=== PATIENT | male | born 2000 | race Caucasian/White ===

== ENCOUNTER 2020-05-09 13:13 | Emergency (ER) | payer SELFPAY ==
[2020-05-09 13:20] VITALS: BP 132/80; PULSE 71; RESP 18; TEMP 36.2; O2SAT 98; BMI 20.3
--- NOTE | 2020-05-09 13:30 | ED_ITS ---
HPI - Chest Pain General: Chief Complaint: Chest Pain Stated Complaint: cp/sent over from [facility] Time Seen by Provider: 05/09/20 13:20 Source: patient Mode of arrival: ambulatory Limitations: no limitations History of Present Illness: HPI narrative: Patient was sent to the emergency department from his primary care provider's office because he complained of chest pain for 2 days duration but worse in the last few hours. No nausea, no vomiting, no dizziness, no diaphoresis. MD complaint: chest pain Onset (ago): hour(s) (24) Timing of current episode: constant Prior episodes: Yes Onset: during rest and during exertion Pain location: left chest Pain radiation: none Severity: moderate Quality: dull Relieving factors: nothing Exacerbating factors: nothing Associated symptoms: Reports no associated symptoms; Deny abdominal pain, dyspnea, fever(s), nausea, palpitations or vomiting Treatment prior to arrival: none Review of Systems General: Reports: 10 or more systems reviewed and unremarkable except in HPI and below Const: Denies: fever(s), chills or body aches Eyes: Denies: change in vision or blurry vision ENMT: Denies: throat pain, enlarged tonsils, odynophagia, hoarseness, mouth pain or swelling of lips/tongue Card: Reports: chest pain; Denies: palpitations, irregular heart rhythm, edema or swelling of feet/ankles Resp: Denies: dyspnea, productive cough or non-productive cough GI: Denies: abdominal pain, nausea or vomiting : Denies: flank pain, dysuria, urinary frequency, urinary urgency or urinary hesitancy Musc: Denies: neck pain, back pain or extremity swelling Skin/Breast: Denies: rash, pruritus or erythema Neuro: Denies: headache(s), numbness in extremities or weakness in extremities Endo: Denies: polyuria, polydipsia or tired all the time PFS ED PFSH: Medical History Right bundle branch block Social History Smoking and tobacco status: heavy tobacco smoker Quit status (tobacco): not considering quitting Second hand smoke exposure: Yes Smoking risk assessment/counseling performed?: No Alcohol intake: never Desire information about alcohol rehabilitation?: No Counseling given: No Desire information about substance/drug rehabilitation?: No Counseling given: No Adopted: No Caregiver/support person: Yes Lives independently: Yes Physical Exam Const: COMMON NORMALS: no acute distress, average body habitus, patient oriented x3, no limitations, healthy appearing, alert and well nourished HENMT: COMMON NORMALS: normocephalic, atraumatic and moist oral mucous membranes HEAD & SCALP: normocephalic and atraumatic Neck/C-Spine: COMMON NORMALS: no meningeal signs and no JVD Chest: COMMONS NORMALS: normal inspection of the chest CHEST: Yes tenderness Resp: COMMON NORMALS: normal respiratory effort, No retractions, No use of accessory muscles, clear to auscultation bilaterally and percussion normal AUSCULTATION: clear to auscultation bilaterally PERCUSSION: percussion normal Cardio: COMMON NORMALS: no JVD, regular rate, regular rhythm, S1 normal heart sound present, S2 normal heart sound present, No gallops present (Cardio), No clicks present (Cardio), No murmurs present (Cardio), No rub (Cardio) and Peripheral pulses 2+ throughout RATE: regular rate RHYTHM: regular rhythm HEART SOUNDS: S1 normal heart sound present and S2 normal heart sound present PERIPHERAL PULSES: Peripheral pulses 2+ throughout GI: COMMON NORMALS: Normal to inspection, nondistended, normoactive bowel sounds present, Soft to palpation, non-tender, No hepatosplenomegaly present, no masses and no bruits PALPATION: Yes Soft to palpation and Yes No hepatosplenomegaly present Extremity: COMMON NORMALS: normal to inspection, full ROM, capillary refill normal, no calf tenderness and no pedal edema Neuro: COMMON NORMALS: patient oriented x3 SENSORIUM/ORIENTATION: Yes alert MENINGEAL SIGNS: Yes no meningeal signs Course Reevaluation(s): Reevaluation #1: Discussed his lab and imaging findings with him. He has mild rhabdomyolysis otherwise labs are unremarkable. Negative baseline troponin and flat 2-hour delta. Advised him to drink plenty of water to keep well-hydrated and to follow-up with his primary care provider. He voiced understanding and is in agreement with the plan. Time: 17:00 Vital Signs: Vital signs: Vital Signs Temperature 97.1 F L 05/09/20 13:20 Pulse Rate 65 05/09/20 17:18 Respiratory Rate 19 H 05/09/20 17:18 Blood Pressure 136/91 05/09/20 17:18 Pulse Oximetry 98 05/09/20 17:18 MDM - Chest Pain MDM Narrative: Medical decision making narrative: 20-year-old gentleman who presented to the emergency department with chest pain. Evaluation was negative for acute coronary findings. Heart score was 0. 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 He is discharged home with no new orders other than to increase his water intake. Medical Records: Attestation: I reviewed the patient's medical records. Lab Data: Attestation: I reviewed the patient's lab results. Labs: Lab Results 05/09/20 05/09/20 05/09/20 Range/Units 13:40 13:40 13:40 WBC 6.1 (4.5-13.0) 10^3/ uL RBC 5.09 (4.1-5.3) 10^6/u L Hgb 14.8 (11.7-16.6) g/dL Hct 43.9 (42.0-52.0) % MCV 86.2 (80-94) fL MCH 29.1 (28.0-34.0) pg MCHC 33.7 (30.0-36.0) g/dL RDW 12.5 (12.1-15.1) % Plt Count 268 (130-400) 10^3/c mm MPV 11.9 H (7.4-10.4) fL Neut % (Auto) 52.3 % Lymph % (Auto) 37.6 % [place] % (Auto) 6.8 % Eos % (Auto) 1.8 % Baso % (Auto) 1.2 % Neut # (Auto) 3.18 (1.8-8.0) 10^3/u L Lymph # (Auto) 2.3 (1.5-6.5) 10^3/u L [place] # (Auto) 0.4 (0.2-0.9) 10^3/u L Eos # (Auto) 0.1 (0.0-0.8) 10^3/u L Baso # (Auto) 0.1 (0.0-0.1) 10^3/u L Nucleated RBC % (a uto) 0 % Nucleated RBCs # 0.0 /100WBC Sodium 137 (136-145) mmol/L Potassium 4.4 (3.5-5.1) mmol/L Chloride 103 (98-107) mmol/L Carbon Dioxide 27 (22-29) mmol/L Anion Gap 11.4 (5-19) BUN 9 (6-20) mg/dL Creatinine 1.1 (0.7-1.2) mg/dL GFR Calculation 85.3 L (90-130) mL/min Glucose 86 (65-115) mg/dL Calculated Osmolal ity 279 L (285-295) mOsm/k g Calcium 9.9 (8.5-10.5) mg/dL Total Bilirubin 0.5 (0.15-1.2) mg/dL AST 27 (0-40) U/L ALT 17 (0-41) U/L Alkaline Phosphata se 73 (40-130) IU/L Creatine Kinase 342 H* (39-308) U/L Troponin T Baselin e 6 (0-15) ng/L Troponin T 120 Min aundrea (0-15) ng/L Delta Troponin T (0-10) ABS# NT-Pro-B Natriuret Pep 19 (0-125) pg/mL Total Protein 6.7 (6.6-8.7) g/dL Albumin 4.9 (3.5-5.2) g/dL Globulin 1.8 (1.3-4.6) g/dL Lipase 19 (13-60) U/L 05/09/20 Range/Units 15:50 WBC (4.5-13.0) 10^3/ uL RBC (4.1-5.3) 10^6/u L Hgb (11.7-16.6) g/dL Hct (42.0-52.0) % MCV (80-94) fL MCH (28.0-34.0) pg MCHC (30.0-36.0) g/dL RDW (12.1-15.1) % Plt Count (130-400) 10^3/c mm MPV (7.4-10.4) fL Neut % (Auto) % Lymph % (Auto) % [place] % (Auto) % Eos % (Auto) % Baso % (Auto) % Neut # (Auto) (1.8-8.0) 10^3/u L Lymph # (Auto) (1.5-6.5) 10^3/u L [place] # (Auto) (0.2-0.9) 10^3/u L Eos # (Auto) (0.0-0.8) 10^3/u L Baso # (Auto) (0.0-0.1) 10^3/u L Nucleated RBC % (a uto) % Nucleated RBCs # /100WBC Sodium (136-145) mmol/L Potassium (3.5-5.1) mmol/L Chloride (98-107) mmol/L Carbon Dioxide (22-29) mmol/L Anion Gap (5-19) BUN (6-20) mg/dL Creatinine (0.7-1.2) mg/dL GFR Calculation (90-130) mL/min Glucose (65-115) mg/dL Calculated Osmolal ity (285-295) mOsm/k g Calcium (8.5-10.5) mg/dL Total Bilirubin (0.15-1.2) mg/dL AST (0-40) U/L ALT (0-41) U/L Alkaline Phosphata se (40-130) IU/L Creatine Kinase (39-308) U/L Troponin T Baselin e (0-15) ng/L Troponin T 120 Min aundrea 6.00 (0-15) ng/L Delta Troponin T 0 (0-10) ABS# NT-Pro-B Natriuret Pep (0-125) pg/mL Total Protein (6.6-8.7) g/dL Albumin (3.5-5.2) g/dL Globulin (1.3-4.6) g/dL Lipase (13-60) U/L Imaging Data^: CXR: Radiologist's impression: [address] [address] XRay Report Signed Patient: Cristobal OrtegaTien #: [id number] : 2000Acct#:[id number] Age/Sex: 20 / MADM Date: 05/09/20 Loc: ERRoom/Bed: Attending Dr: Ordering Provider/Ordering MD: Alcides Mackenzie MD, [facility] [place]: 05/09/20 Procedure(s): XR chest 1V portable [id number] Accession Number(s): [id number] Report Number: [id number] WS: [id number] CHEST XRAY TECHNIQUE: Portable chest. CLINICAL INFORMATION: chest pain COMPARISON: FINDINGS: Heart: Normal cardiac silhouette. Lungs: Lungs are clear. No consolidation or pleural effusion. Bones: Normal visualized bony structures. XR/XR chest 1V portable [id number] IMPRESSION: Normal chest Dictated By:Boyd Swenson MD Signed By:Boyd Swenson MDSigned Date/Time:05/09/201356 DD/ 135 EKG Data^: EKG 1: Attestation: I personally reviewed and interpreted this EKG as follows: EKG interpretation date: 05/09/20 EKG interpretation time: 14:02 Prior EKG tracings: not available for review Interpretation: Sinus rhythm with sinus arrhythmia. 71 beats per minutes. Incomplete right bundle branch block. No ST changes EKG 2: Attestation: I personally reviewed and interpreted this EKG as follows: EKG interpretation date: 05/09/20 EKG interpretation time: 16:17 Prior EKG tracings: available for review Interpretation: Sinus bradycardia with sinus arrhythmia. Heart rate [address] changes. Normal axis. Discharge Plan Discharge Patient Disposition: Home Clinical Impression: Chest pain, non-cardiac Rhabdomyolysis Qualifiers: Rhabdomyolysis type: non-traumatic Qualified Code(s): M62.82 - Rhabdomyolysis Condition: Stable Prescriptions: No Action No Known Home Medications RF: 0 Discharge Orders: Discharge Order (Routine); Ordered 05/09/20 Ordered By: Alcides Mackenzie Referrals: Kelin Ortez FNP-C [Primary Care Provider] - 1-3 days Discharge Diet: Usual diet Discharge Activity: Resume usual activity Patient Instructions: Rhabdomyolysis (ED), Noncardiac Chest Pain (ED) Activity Restrictions/Additional Instructions: Return for any new or worsening symptoms. Follow-up with your primary care provider within 2 days. Drink plenty of water to keep well-hydrated. Rest for the next 1 or 2 days then gradually resume your prior level of activity. Discharge Date/Time: 05/09/20 17:21 Coding Level of Care Code ED Planer Hand for Jamari Fwleodan Exam Comprehensive
--- NOTE | 2020-05-09 13:32 | ECG_ITS ---
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 Measurements Intervals [place] Rate: 71 P: 70 W[place]: 161 QRS: -17 QRSD: 100 T: 54 QT: 395 QTc: 432 Interpretive Statements SINUS RHYTHM WITH SINUS ARRHYTHMIA INCOMPLETE RIGHT BUNDLE BRANCH BLOCK [90+ ms QRS DURATION, TERMINAL R IN V1/V2, 40+ ms S IN I/aVL/V4/V5/V6] No previous ECG available for comparison Electronically Signed On 05-09-2020 20:15:45 CDT by Chantal Chaudhary M.D. [id number]
--- NOTE | 2020-05-09 13:32 | XR_ITS ---
WS: [id number] CHEST XRAY TECHNIQUE: Portable chest. CLINICAL INFORMATION: chest pain COMPARISON: FINDINGS: Heart: Normal cardiac silhouette. Lungs: Lungs are clear. No consolidation or pleural effusion. Bones: Normal visualized bony structures. XR/XR chest 1V portable [id number] IMPRESSION: Normal chest
[2020-05-09 13:46] VITALS: BP 123/74; PULSE 74; RESP 19; O2SAT 99
[2020-05-09] MEDS: aspirin 81 mg Chew Tablet 324 MG PO (13:47)
[2020-05-09 13:49] LABS: Basophils # 0.1 10^3/uL (0.0-0.1); Basophils % 1.2 %; Eosinophils # 0.1 10^3/uL (0.0-0.8); Eosinophils % 1.8 %; Hematocrit 43.9 % (42.0-52.0); Hemoglobin 14.8 g/dL (11.7-16.6); Lymphocytes # 2.3 10^3/uL (1.5-6.5); Lymphocytes % 37.6 %; Mean Corpuscular HGB Conc 33.7 g/dL (30.0-36.0); Mean Corpuscular Hemoglobin 29.1 pg (28.0-34.0); Mean Corpuscular Volume 86.2 fL (80-94); Mean Platelet Volume 11.9 fL (7.4-10.4); Monocytes # 0.4 10^3/uL (0.2-0.9); Monocytes % 6.8 %; Neutrophils # 3.18 10^3/uL (1.8-8.0); Neutrophils % 52.3 %; Nucleated Red Blood Cells % 0 %; Platelet Count 268 10^3/cmm (130-400); Red Blood Count 5.09 10^6/uL (4.1-5.3); Red Cell Distribution Width 12.5 % (12.1-15.1); White Blood Count 6.1 10^3/uL (4.5-13.0)
[2020-05-09 14:00] VITALS: BP 117/73; PULSE 58; RESP 16; O2SAT 100
[2020-05-09 14:17] LABS: Troponin(5th) Baseline 6 ng/L (0-15)
--- NOTE | 2020-05-09 14:20 | PC.NURSE ---
PT STATES THAT HE CANNOT URINATE INFORMED DR. SANTAMARIA VERBALIZED UNDERSTANDING NO FURTHER ORDERS.
[2020-05-09 14:21] LABS: Alanine Aminotransferase 17 U/L (0-41); Albumin Level 4.9 g/dL (3.5-5.2); Alkaline Phosphatase 73 IU/L (40-130); Anion Gap 11.4 (5-19); Aspartate Amino Transferase 27 U/L (0-40); Blood Urea Nitrogen 9 mg/dL (6-20); Calcium 9.9 mg/dL (8.5-10.5); Carbon Dioxide 27 mmol/L (22-29); Chloride 103 mmol/L (98-107); Globulin 1.8 g/dL (1.3-4.6); Glomerular Filtration Rate 85.3 mL/min (90-130); Glucose 86 mg/dL (65-115); Lipase 19 U/L (13-60); NT Pro B Type Natriuretic Pept 19 pg/mL (0-125); Osmolality Calculated 279 mOsm/kg (285-295); Potassium 4.4 mmol/L (3.5-5.1); Sodium 137 mmol/L (136-145); Total Bilirubin 0.5 mg/dL (0.15-1.2); Total Protein 6.7 g/dL (6.6-8.7)
[2020-05-09 14:26] LABS: Creatine Phosphokinase 342 U/L (39-308)
[2020-05-09] MEDS: sodium chloride 0.9% 1,000 ML 999 ML IV ×2 (14:41→15:26)
--- NOTE | 2020-05-09 15:15 | PC.NURSE ---
PT STATES THAT HE CANNOT URINATE FOR LAB SPECIMEN INFORMED DR. SANTAMARIA NO FURTHER ORDERS
[2020-05-09 15:29] VITALS: BP 122/72; PULSE 54; RESP 21; O2SAT 100
--- NOTE | 2020-05-09 15:32 | ECG_ITS ---
[facility] Test Date: 2020-05-09 Pat Name: Tien Jain Jr Department: Room: Gender: Male Dynamometer Tester: : 2000 Requested By: Alcides Mackenzie I Order Number: [id number] Tyree MD: Chantal Chaudhary M.D. Measurements Intervals [place] Rate: 56 P: 69 RI: 170 QRS: 6 QRSD: 101 T: 57 QT: 415 QTc: 401 Interpretive Statements SINUS BRADYCARDIA WITH SINUS ARRHYTHMIA Compared to ECG 05/09/2020 14:02:36 Sinus rhythm no longer present Incomplete right bundle-branch block no longer present Electronically Signed On 05-09-2020 20:32:08 CDT by Chantal Chaudhary M.D. [id number]
[2020-05-09 16:28] LABS: Troponin 5 2HR Delta 0 ABS# (0-10)
[2020-05-09 16:30] VITALS: BP 123/78; PULSE 74; RESP 15; O2SAT 100
[2020-05-09 17:18] VITALS: BP 136/91; PULSE 65; RESP 19; O2SAT 98
== END 2020-05-09 17:21 | disposition home or self-care (01) ==
PROVIDERS: Emergency Provider Family Medicine; PCP Nurse Practitioner Family
DX: R07.89 Other chest pain (principal); M62.82 Rhabdomyolysis; F17.210 Nicotine dependence, cigarettes, uncomplicated
CPT/HCPCS: 12345; 36415; 71045; 80053; 82550; 83690; 83880; 84484; 85025; 93005; 96360; 96361; 99283; 99284; J7030

== ENCOUNTER 2020-07-09 13:48 | Outpatient (CLI) | payer SELFPAY | END 2020-07-09 13:49 | disposition home or self-care (01) | LOC: WOUND 13:48 | PROVIDERS: PCP Nurse Practitioner Family; Visit Provider Thoracic Surgery (Cardiothoracic Vascular Surgery) | DX: L89.323 Pressure ulcer of left buttock, stage 3 (principal) ==

== ENCOUNTER 2021-04-17 12:58 | Emergency (ER) | payer SELFPAY ==
[2021-04-17 13:02] VITALS: BP 120/70; PULSE 67; RESP 18; TEMP 36.7; O2SAT 100; BMI 21.4
--- NOTE | 2021-04-17 13:36 | XR_ITS ---
WS: [id number] Left hand, 3 views, 04/17/2021 Clinical Data: work injury, hand swelling Comparison: None. Findings: There is a nondisplaced fracture of the base of the left second metacarpal. The remainder the metacar pals is normal. The joint spaces are normal. There is soft tissue swelling over the fracture site. XR/XR hand LT min 3V* [id number] Impression: Fracture of the base of the left second metacarpal.
--- NOTE | 2021-04-17 13:36 | XR_ITS ---
WS: [id number] Left wrist, 3 views, 04/17/2021 Clinical Data: work injury Comparison: None. Findings: There is a fracture of the base of the right second metacarpal. No wrist fractures or dislocations are seen. The carpal bones are intact. There is no soft tissue swe lling. The distal radius and ulna are not remarkable. XR/XR wrist LT min 3V* [id number] Impression: Fracture of the base of the right second metacarpal.
[2021-04-17 13:37] VITALS: BP 120/70; PULSE 56; RESP 16; O2SAT 100
--- NOTE | 2021-04-17 14:53 | W.ED.TRAUMA ---
HPI - Trauma General: Chief Complaint: Trauma Stated Complaint: L RIB/ L HAND/ L WRIST/ TRAUMA Time Seen by Provider: 04/17/21 13:13 Source: patient Mode of arrival: EMS Limitations: no limitations History of Present Illness: HPI narrative: Patient is a 20-year-old male who was brought into the emergency department from work after sustaining a work-related injury. He says a piece of log rolled off from what it was and landed on his left wrist and hand. He has pain and swelling in the left hand. He denies any other injuries and he has pain nowhere else. complaint: injury Onset (ago): hour(s) (1) Loss of Consciousness: no Location - Extremities: Left: hand Severity: severe Context: other (log fell on his hand) Associated symptoms: Reports no associated symptoms; Denies abdominal pain, anorexia, back pain, chest pain, chills, confusion, cough, dental pain, diaphoresis, difficulty breathing, dizziness, epistaxis, fever(s), headache(s), nausea, seizures, short of breath, syncope, visual disturbances, vomiting or weakness Review of Systems General: Reports: 10 or more systems reviewed and unremarkable except in HPI and below Const: Denies: fever(s), chills or diaphoresis ENMT: Denies: dental pain or epistaxis Card: Denies: chest pain or syncope GI: Denies: abdominal pain, nausea or vomiting Musc: Denies: back pain Neuro: Denies: headache(s), dizziness or confusion PFS ED PFSH: Medical History (Reviewed 04/18/21 @ 12:09 by Alcides Mackenzie MD, [facility] [place] Right bundle branch block Social History (Reviewed 04/18/21 @ 12:09 by Alcides Mackenzie MD, [facility] [place]) Smoking and tobacco status: heavy tobacco smoker Quit status (tobacco): not considering quitting Second hand smoke exposure: Yes Smoking risk assessment/counseling performed?: No Alcohol intake: never Desire information about alcohol rehabilitation?: No Counseling given: No Desire information about substance/drug rehabilitation?: No Counseling given: No Adopted: No Caregiver/support person: Yes Lives independently: Yes Physical Exam Const: COMMON NORMALS: no acute distress, average body habitus, patient oriented x3, no limitations, healthy appearing, alert and well nourished HENMT: COMMON NORMALS: normocephalic, atraumatic and moist oral mucous membranes HEAD & SCALP: normocephalic and atraumatic Eye: COMMON NORMALS: Equal, round and reactive pupils present, EOMs intact bilaterally, conjunctivae normal and no scleral icterus CONJUNCTIVA: Yes conjunctivae normal PUPIL: Yes Equal, round and reactive pupils present Neck/C-Spine: COMMON NORMALS: full ROM, supple, no meningeal signs, no JVD and No carotid bruits Resp: COMMON NORMALS: normal respiratory effort, No retractions, No use of accessory muscles, clear to auscultation bilaterally and percussion normal AUSCULTATION: clear to auscultation bilaterally PERCUSSION: percussion normal Cardio: COMMON NORMALS: no JVD, regular rate, regular rhythm, S1 normal heart sound present, S2 normal heart sound present, No gallops present (Cardio), No clicks present (Cardio), No murmurs present (Cardio), No rub (Cardio) and Peripheral pulses 2+ throughout RATE: regular rate RHYTHM: regular rhythm HEART SOUNDS: S1 normal heart sound present and S2 normal heart sound present PERIPHERAL PULSES: Peripheral pulses 2+ throughout GI: COMMON NORMALS: Normal to inspection, nondistended, normoactive bowel sounds present, Soft to palpation, non-tender, No hepatosplenomegaly present, no masses and no bruits PALPATION: Yes Soft to palpation and Yes No hepatosplenomegaly present Extremity: COMMON NORMALS: normal to inspection, full ROM, capillary refill normal, no calf tenderness and no pedal edema LEFT UPPER EXTREMITY: Yes hand & digits (swelling at the dorsal web space between thumb and index finger) Left hand and digits: Yes palpation (Tender to palpation around the base of the first and second metacarpal), Yes ROM (reduced, due to pain) and Yes neurovascular exam (intact) Neuro: COMMON NORMALS: patient oriented x3 SENSORIUM/ORIENTATION: Yes alert MENINGEAL SIGNS: Yes no meningeal signs Skin: COMMON NORMALS: no rashes or lesions noted, no wounds, turgor normal, no jaundice, no petechiae and no mottling GENERAL SKIN EXAM: no rashes or lesions noted and turgor normal TRAUMA: abrasion (abrasions on his shoulder and right forearm but he says that these are old) Course Reevaluation(s): Reevaluation #1: Discussed his imaging findings with him. Explained that he has a fracture of the second metacarpal as reported by the radiologist. On looking at the images I think he also has a fracture of the base of the first metacarpal. He will be referred to orthopedic surgery for follow-up on his placed in a Colles' splint. Time: 14:54 Vital Signs: Vital signs: Vital Signs Temperature 98.0 F 04/17/21 13:02 Pulse Rate 68 04/17/21 16:00 Respiratory Rate 16 04/17/21 16:00 Blood Pressure 131/85 04/17/21 16:00 Pulse Oximetry 100 04/17/21 16:00 MDM - Trauma MDM Narrative: Medical decision making narrative: 20-year-old male who suffered fracture of the base of his first and second metacarpals of his left hand following a workplace accident. A piece of log fell on his hand while at work. He was placed in a: Splint and discharged home with a prescription for pain medication. He is to follow-up with his primary care provider and an orthopedic surgeon. Medical Records: Attestation: I reviewed the patient's medical records. Imaging Data^: Xray Ortho: Attestation: I personally reviewed and interpreted this imaging study as follows: Radiologist's impression: [address] [address]ZSdj ReportSigned Patient: Tien Jain Jr #: [id number]: 2000Acct#:[id number]/Sex: 20 / MADM Date: 04/17/21Loc: [facility]/Bed:Attending Dr: Ordering Provider/Ordering MD: Alcides Mackenzie MD, [facility] [place] Date of Service: 04/17/21 Procedure(s): XR hand LT min 3V* [id number] Accession Number(s): [id number] Report Number: [id number] WS: [id number] Left hand, 3 views, 04/17/2021 Clinical Data: work injury, hand swelling Comparison: None. Findings: There is a nondisplaced fracture of the base of the left second metacarpal. The remainder the metacarpals is normal. The joint spaces are normal. There is soft tissue swelling over the fracture site. XR/XR hand LT min 3V* [id number] Impression: Fracture of the base of the left second metacarpal. Dictated By:Addis Perales MDSigned By:Addis Perales MDSigned Date/Time:04/17/21/ [address] [address]FAzk ReportSigned Patient: Tien Jain Jr #: [id number]: 2000Acct#:[id number]/Sex: 20 / MADM Date: 04/17/21Loc: ERRoom/Bed:Attending Dr: Ordering Provider/Ordering MD: Alcides Mackenzie MD, [facility] [place] Date of Service: 04/17/21 Procedure(s): XR wrist LT min 3V* 46061 Accession Number(s): [id number] Report Number: [id number] WS: [id number] Left wrist, 3 views, 04/17/2021 Clinical Data: work injury Comparison: None. Findings: There is a fracture of the base of the right second metacarpal. No wrist fractures or dislocations are seen. The carpal bones are intact. There is no soft tissue swelling. The distal radius and ulna are not remarkable. XR/XR wrist LT min 3V* [id number] Impression: Fracture of the base of the right second metacarpal. Dictated By:Addis Perales MDSigned By:Addis Perales MDSigned Date/Time:04/17/21/ 26 Discharge Plan Discharge Patient Disposition: Home Clinical Impression: Fx metacarpal Qualifiers: Encounter type: initial encounter Metacarpal bone: second Fracture type: closed Metacarpal location: base Fracture alignment: nondisplaced Laterality: left Qualified Code(s): S62.341A - Nondisplaced fracture of base of second metacarpal bone, left hand, initial encounter for closed fracture First metacarpal bone fracture Qualifiers: Encounter type: initial encounter Fracture type: closed Metacarpal location: base Fracture morphology: unspecified fracture morphology Fracture alignment: nondisplaced Laterality: left Qualified Code(s): S62.235A - Other nondisplaced fracture of base of first metacarpal bone, left hand, initial encounter for closed fracture Condition: Stable Prescriptions: New hydrocodone-acetaminophen 5-325 mg tablet 1 tab PO Q8H PRN (Reason: metacarpal fracture) Qty: 10 RF: 0 No Action No Known Home Medications RF: 0 Discharge Orders: Discharge ED (Routine); Ordered 04/17/21 Ordered By: Alcides Mackenzie Referrals: Kelin Ortez FNP-C [Primary Care Provider] - 1-3 days Discharge Diet: Usual diet Discharge Activity: Limit activity as instructed Patient Instructions: Hand Fracture (ED), Opioid Safety Activity Restrictions/Additional Instructions: Return for any new or worsening symptoms. Follow-up with your primary care provider/Workmen's Comp. doctor within 3 days. You will be contacted by case management to schedule an appointment with orthopedic surgeon. Use the splint to help reduce swelling and pain. Elevate the arm and hand to reduce swelling and pain. Take the pain medicine as needed for severe pain. Take ibuprofen for mild to moderate pain. No heavy lifting until you have been cleared by your doctor. Stand Alone Forms: Work/School Release Coding Level of Care Code ED Shadow Graph Weight Operator for Jamari Lemon
[2021-04-17 16:00] VITALS: BP 131/85; PULSE 68; RESP 16; O2SAT 100
--- NOTE | 2021-04-17 16:26 | PC.NURSE ---
left arm splint applied. Checked by Dr. Mackenzie.
--- NOTE | 2021-04-18 08:50 | DCPLANNER ---
manager stars had message to schedule a follow up appointment for patient with ortho for metacarpal fracture. manager stars called the ortho clinic, spoke with Breanne, gave clinic patients information. manager stars was told that patients information would be printed and reviewed. Clinic will call patient with appointment information.
--- NOTE | 2021-04-22 08:12 | DCPLANNER ---
Patient has a follow up appointment scheduled for , April 24, 2021 at 3:[address] De Leon at [facility]. Clinic will call patient with appointment information.
--- NOTE | 2021-05-16 13:30 | DCPLANNER ---
Patient had a follow up appointment scheduled for 04.24.21 with ortho - appointment was rescheduled.
== END 2021-04-17 16:48 | disposition home or self-care (01) ==
PROVIDERS: Emergency Provider Family Medicine; PCP Nurse Practitioner Family
DX: S62.341A Nondisplaced fracture of base of second metacarpal bone, left hand, initial encounter for closed fracture (principal); S62.235A Other nondisplaced fracture of base of first metacarpal bone, left hand, initial encounter for closed fracture; F17.200 Nicotine dependence, unspecified, uncomplicated; W20.8XXA Other cause of strike by thrown, projected or falling object, initial encounter; Y92.89 Other specified places as the place of occurrence of the external cause
CPT/HCPCS: 29125; 73110; 73130; 99283

== ENCOUNTER 2023-01-02 16:54 | Inpatient (IN) | payer BC, SELFPAY ==
[2023-01-02 16:55] VITALS: BP 123/67; PULSE 89; RESP 15; TEMP 36.9; O2SAT 96; BMI 20.7
--- NOTE | 2023-01-02 17:00 | ED.C_ITS ---
HPI - Psych General: Chief Complaint: Psychiatric Symptoms Stated Complaint: SI Time Seen by Provider: 01/02/23 16:58 History of Present Illness: Patient brought in by EMS with complaints of suicidal ideation and attempt. Patient has multiple superficial abrasions to his left forearm and a laceration to his left neck. These was diirect and attempt to end his life. MD complaint: suicidal ideation Onset (ago): day(s) Duration: constant Relieving factors: none Exacerbating factors: none Context: recent alcohol abuse Associated psychiatric symptoms: depression and suicidal ideation Associated symptoms: Reports depression and suicidal ideation Treatments prior to arrival: none If self harm: admits thoughts of self harm and has plan Review of Systems General: Reports: 10 or more systems reviewed and unremarkable except in HPI and below Const: Denies: fever(s) or chills Eyes: Denies: change in vision or photophobia ENMT: Denies: throat pain or odynophagia Card: Denies: chest pain, palpitations or irregular heart rhythm Resp: Denies: dyspnea, productive cough or non-productive cough GI: Denies: abdominal pain, nausea or vomiting : Denies: flank pain or dysuria Musc: Denies: neck pain, back pain or extremity pain Skin/Breast: Denies: rash or pruritus Neuro: Denies: headache(s) or numbness in extremities Psych: Reports: depression and suicidal ideation [facility] ED PFSH: Medical History (Updated 01/02/23 @ 19:15 by Wicho Fry DO) Right bundle branch block Social History Smoking and tobacco status: heavy tobacco smoker Quit status (tobacco): not considering quitting Second hand smoke exposure: Yes Smoking risk assessment/counseling performed?: No Alcohol intake: never Desire information about alcohol rehabilitation?: No Counseling given: No Desire information about substance/drug rehabilitation?: No Counseling given: No Adopted: No Caregiver/support person: Yes Lives independently: Yes Physical Exam Const: COMMON NORMALS: no acute distress, average body habitus, patient oriented x3, no limitations, healthy appearing, alert and well nourished HENMT: COMMON NORMALS: normocephalic, atraumatic, hearing grossly normal bilaterally, Normal external nose present and moist oral mucous membranes HEAD & SCALP: normocephalic and atraumatic NOSE: Normal external nose present Eye: COMMON NORMALS: Equal, round and reactive pupils present, EOMs intact bilaterally, conjunctivae normal and no scleral icterus CONJUNCTIVA: Yes conjunctivae normal PUPIL: Yes Equal, round and reactive pupils present Neck/C-Spine: COMMON NORMALS: full ROM, no lymphadenopathy, supple, no meningeal signs, no JVD and Thyroid normal THYROID: Thyroid normal Chest: COMMONS NORMALS: normal inspection of the chest and normal palpation of entire chest wall Resp: COMMON NORMALS: normal respiratory effort, No retractions, No use of accessory muscles and clear to auscultation bilaterally AUSCULTATION: clear to auscultation bilaterally Cardio: COMMON NORMALS: no JVD GI: COMMON NORMALS: Normal to inspection, nondistended, normoactive bowel so unds present, Soft to palpation, non-tender, No hepatosplenomegaly present and no masses PALPATION: Yes Soft to palpation and Yes No hepatosplenomegaly present : COMMON NORMALS: Yes no CVA tenderness BLADDER/KIDNEY EXAM: Yes no CVA tenderness Back/Pelvis: COMMON NORMALS: no CVA tenderness Neuro: COMMON NORMALS: patient oriented x3, CN's II-XII intact bilaterally, moves all extremities, no focal motor deficits and no sensory deficits noted SENSORIUM/ORIENTATION: Yes alert MENINGEAL SIGNS: Yes no meningeal signs Psych: COMMON NORMALS: speech normal ATTITUDE: Yes Withdrawn affect present ACTIVITY/MOTOR BEHAVIOR: Yes appropriate eye contact SPEECH: Yes normal speech MOOD & AFFECT: Yes euthymic mood and Yes depressed mood Skin: NARRATIVE SKIN EXAM: Multiple superficial abrasions to his left forearm, one laceration to the left neck unable to gap at this time bleeding controlled. Course Vital Signs: Vital signs: Vital Signs Temperature 98.4 F 01/02/23 16:55 Pulse Rate 89 01/02/23 16:55 Respiratory Rate 15 01/02/23 16:55 Blood Pressure 123/67 01/02/23 16:55 Pulse Oximetry 96 01/02/23 16:55 Oxygen Delivery Me thod 01/02/23 16:55 MDM - Psych Medical Decision Making Patient presents to the ER by EMS with complaints of suicidal ideation and attempt. Patient has multiple superficial abrasions on his left forearm and one superficial laceration on his left neck. Patient did state this was an attempt to take his life. Labs were drawn physical exam was performed. Superficial laceration of his left neck was closed with Dermabond. Dr. Alston was consulted. He agreed for inpatient admission. Patient was notified that he was being placed in the hospital and the doctor would come see him for second morning and patient was okay with this. Differential Diagnosis Likely suicidal ideation and depression Medical Records I reviewed the patient's medical records. Lab Data I reviewed the patient's lab results. 01/02/23 17:20 01/02/23 17:20 Laboratory Results WBC 6.9 10^3/uL (4.0-10.0) 01/02/23 17:20 RBC 5.21 10^6/uL (4.1-5.3) 01/02/23 17:20 Hgb 15.3 g/dL (11.7-16.6) 01/02/23 17:20 Hct 44.8 % (42.0-52.0) 01/02/23 17:20 MCV 86.0 fl (80-94) 01/02/23 17:20 MCH 29.4 pg (28.0-34.0) 01/02/23 17:20 MCHC 34.2 g/dL (30.0-36.0) 01/02/23 17:20 RDW 13.2 % (12.1-15.1) 01/02/23 17:20 Plt Count 285 10^3/cmm (130-400) 01/02/23 17:20 MPV 11.4 fL (7.4-10.4) H 01/02/23 17:20 Neut % (Auto) 67.0 % 01/02/23 17:20 Lymph % (Auto) 22.6 % 01/02/23 17:20 [place] % (Auto) 7.5 % 01/02/23 17:20 Eos % (Auto) 1.9 % 01/02/23 17:20 Baso % (Auto) 0.7 % 01/02/23 17:20 Neut # (Auto) 4.61 10^3/uL (1.8-7.7) 01/02/23 17:20 Lymph # (Auto) 1.6 10^3/uL (0.8-4.8) 01/02/23 17:20 [place] # (Auto) 0.5 10^3/uL (0.2-0.9) 01/02/23 17:20 Eos # (Auto) 0.1 10^3/uL (0.0-0.8) 01/02/23 17:20 Baso # (Auto) 0.1 10^3/uL (0.0-0.1) 01/02/23 17:20 Nucleated RBC % (auto) 0 % 01/02/23 17:20 Nucleated RBCs # 0.0 /100WBC 01/02/23 17:20 Sodium 141 mmol/L (136-145) 01/02/23 17:20 Potassium 4.4 mmol/L (3.5-5.1) 01/02/23 17:20 Chloride 105 mmol/L (98-107) 01/02/23 17:20 Carbon Dioxide 26 mmol/L (22-29) 01/02/23 17:20 Anion Gap 14.4 (5-19) 01/02/23 17:20 BUN 7 mg/dL (6-20) 01/02/23 17:20 Creatinine 0.9 mg/dL (0.7-1.2) 01/02/23 17:20 GFR Calculation 105.5 mL/min (90-130) 01/02/23 17:20 Glucose 76 mg/dL (65-115) 01/02/23 17:20 Calculated Osmolality 289 mOsm/kg (285-295) 01/02/23 17:20 Calcium 9.1 mg/dL (8.5-10.5) 01/02/23 17:20 Total Bilirubin 0.6 mg/dL (0.15-1.2) 01/02/23 17:20 AST 24 U/L (0-40) 01/02/23 17:20 ALT 18 U/L (0-41) 01/02/23 17:20 Alkaline Phosphatase 85 U/L (40-130) 01/02/23 17:20 Total Protein 7.0 g/dL (6.6-8.7) 01/02/23 17:20 Albumin 4.6 g/dL (3.5-5.2) 01/02/23 17:20 Globulin 2.4 g/dL (1.3-4.6) 01/02/23 17:20 Urine Color Yellow (Yellow) 01/02/23 17:12 Urine Appearance Clear (CLEAR) 01/02/23 17:12 Urine pH 5 (5-7) 01/02/23 17:12 Ur Specific [place] 1.020 (1.005-1.030) 01/02/23 17:12 Urine Protein Neg (Negative) 01/02/23 17:12 Urine Glucose (UA) Norm (Normal) 01/02/23 17:12 Urine Ketones Negative (Negative) 01/02/23 17:12 Urine Blood Neg (Negative) 01/02/23 17:12 Urine Nitrate Negative (Negative) 01/02/23 17:12 Urine Bilirubin Neg (Negative) 01/02/23 17:12 Urine Urobilinogen Norm mg/dL (Negative) 01/02/23 17:12 Ur Leukocyte Esterase Negative (Negative) 01/02/23 17:12 Salicylates < 0.3 mg/dL (3-10) L 01/02/23 17:20 Urine Opiates Screen Negative ng/mL (Negative) 01/02/23 17:12 Acetaminophen < 5.0 ug/mL (10-30) L 01/02/23 17:20 Ur Barbiturates Screen Negative ng/mL (Negative) 01/02/23 17:12 Ur Phencyclidine Scrn Negative ng/mL (Negative) 01/02/23 17:12 Ur Amphetamines Screen Positive ng/mL (Negative) H 01/02/23 17:12 U Benzodiazepines Scrn Negative ng/mL (Negative) 01/02/23 17:12 Urine Cocaine Screen Negative ng/mL (Negative) 01/02/23 17:12 U Marijuana (THC) Screen Positive ng/mL (Negative) H 01/02/23 17:12 Ethyl Alcohol 28 mg/dL (0-10) H 01/02/23 17:20 Discharge Plan Discharge Patient Disposition: Admitted As Inpatient Clinical Impression: Suicidal ideation, Amphetamine abuse Condition: Stable Coding Level of Care Code ED [employer] for Jamari Lemon
[2023-01-02 17:22] LABS: Add Urine Microscopic? NO; Charge for UA Resulting for Rev
[2023-01-02 17:34] LABS: Bilirubin Urine Neg (Negative); Blood Urine Neg (Negative); Glucose Urine UA Norm (Normal); Ketones Urine Negative (Negative); Leukocyte Esterase Urine Negative (Negative); Nitrate Urine Negative (Negative); Protein Urine Neg (Negative); Urine Appearance Clear (CLEAR); Urine Color Yellow (Yellow); Urobilinogen Urine Norm (Negative); pH Urine 5 (5-7)
[2023-01-02 17:39] LABS: Basophils # 0.1 10^3/uL (0.0-0.1); Basophils % 0.7 %; Eosinophils # 0.1 10^3/uL (0.0-0.8); Eosinophils % 1.9 %; Hematocrit 44.8 % (42.0-52.0); Hemoglobin 15.3 g/dL (11.7-16.6); Lymphocytes # 1.6 10^3/uL (0.8-4.8); Lymphocytes % 22.6 %; Mean Corpuscular HGB Conc 34.2 g/dL (30.0-36.0); Mean Corpuscular Hemoglobin 29.4 pg (28.0-34.0); Mean Platelet Volume 11.4 fL (7.4-10.4); Monocytes # 0.5 10^3/uL (0.2-0.9); Monocytes % 7.5 %; Neutrophils # 4.61 10^3/uL (1.8-7.7); Nucleated Red Blood Cells % 0 %; Platelet Count 285 10^3/cmm (130-400); Red Blood Count 5.21 10^6/uL (4.1-5.3); Red Cell Distribution Width 13.2 % (12.1-15.1); White Blood Count 6.9 10^3/uL (4.0-10.0)
[2023-01-02 17:43] LABS: Amphetamines Screen Urine Positive (Negative); Barbiturates Screen Urine Negative (Negative); Benzodiazepines Screen Urine Negative (Negative); Cocaine Screen Urine Negative (Negative); Opiate Screen Urine Negative (Negative); PCP Screen Urine Negative (Negative); THC Screen Urine Positive (Negative)
[2023-01-02 17:52] LABS: Alanine Aminotransferase 18 U/L (0-41); Albumin Level 4.6 g/dL (3.5-5.2); Alcohol Level 28 mg/dL (0-10); Alkaline Phosphatase 85 U/L (40-130); Anion Gap 14.4 (5-19); Aspartate Amino Transferase 24 U/L (0-40); Blood Urea Nitrogen 7 mg/dL (6-20); Calcium 9.1 mg/dL (8.5-10.5); Carbon Dioxide 26 mmol/L (22-29); Chloride 105 mmol/L (98-107); Globulin 2.4 g/dL (1.3-4.6); Glomerular Filtration Rate 105.5 mL/min (90-130); Glucose 76 mg/dL (65-115); Osmolality Calculated 289 mOsm/kg (285-295); Potassium 4.4 mmol/L (3.5-5.1); Sodium 141 mmol/L (136-145); Total Bilirubin 0.6 mg/dL (0.15-1.2)
[2023-01-02 17:55] LABS: Acetaminophen < 5.0 ug/mL (10-30); Salicylate < 0.3 mg/dL (3-10)
--- NOTE | 2023-01-02 18:08 | PC.NURSE ---
PT NECK CLEANSED AND DERMABOND USED TO CLOSE WOUND PER DR. ZAK MURRIETA.
--- NOTE | 2023-01-02 18:57 | PC.NURSE ---
REPORT GIVEN TO MARA RN ASSUMED CARE.
[2023-01-02 22:00] VITALS: BP 108/66; PULSE 77; RESP 18; TEMP 36.7; O2SAT 97
[2023-01-03 06:00] VITALS: RESP 18; BMI 20.7
--- NOTE | 2023-01-03 07:16 | P.NPUHP_ITS ---
Providers/Chief Complaint Admitting Physician: Javi Alston MD Primary Care Provider: KLEVER Lauren Chief Complaint: SI HPI NPU History of Present Illness Tien Jain Jr is a 22 year old male The patient was admitted to the neuropsychiatric unit for definitive treatment of those issues. There have been crisis contacts by his mother secondary to what she described as out of control behavior which lead to him being brought to the emergency department. He ultimately agreed once he got to the hospital that his behavior had been out of control and he was willing to be admitted to the neuropsychiatric unit. The patient presents reporting that he has a past history of psychiatric treatment as a juvenile but denies any services since he has turned 18. He came to the hospital secondary to suicidal ideation and stress but he reported that he had been having conflict with his mother and grandmother with whom he lives, which has made things very difficult. He reports that he had been on lots of medications as a child including medication for adhd, depression and mood dysregulation. He had been on Abilify and Prozac at one point and reports they were quite helpful when he took them. He reports he smokes cigarettes, drinks alcohol occasionally, smokes marijuana and denies any other illicit drug use. He has never been to rehab, denies any DUIs or other drug and alcohol related charges. He reports things started in his youth when he had problems with anger and impulsivity and was treated for it. He reports it was probably helpful but was rebellious and did not want to take the medications. He said in recent times he has really struggled with anger and irritability and said when he was taking the Prozac and Abilify those were not as present. He endorses feelings of helplessness, hopelessness, worthlessness, sleep difficulties, passive wish and most recently suicidal thoughts. He reports things have not been as enjoyable and he is frustrated all of the time. It has affect his ability to be consistent with work and his relationships extensively. He reports he probably does have some anxiety as well. Psychiatric History: As above. Substance Abuse History: As above. Family History: He endorses some mental health issues in his family, was unclear about addiction issues and denies any known suicide attempts or completions. Developmental History: He denies any issues with his or , learned to walk and talk and met his developmental milestones on time and denies any need for speech therapy, learning support or emotional support but did have some special education classes. Psychosocial History: He reports his parents were together when he was born and he has an older sister and younger brother who are products of the same union but his father has 3 additional children. He reports his childhood was okay and denies any emotional, physical or sexual abuse. He denies [employer] involvement. He denies any other traumatic events. He endorses being heterosexual. He has never been , has 3 biological children but struggles to see them due to his relationship with their mother, has never been in the and denies a episcopalian belief system. 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 He currently lives in a camper with his mother and grandmother. Legal History: He reports he has been in senior care multiple times, the longest time of which was 1 month. Medical History: He denies any significant medical issues. Meds NPU Home Medications Medication Instructions Recorded Confirmed Last Taken Type No Known Home Medications 01/02/23 01/02/23 Unknown History Allergies Allergy/AdvReac Type Severity Reaction Status Date / Time No Known Allergies Allergy Unverified 05/09/20 10:27 [facility] NPU PFS: Medical History (Updated 01/04/23 @ 08:49 by Javi Alston MD) Right bundle branch block Social History Smoking and tobacco status: heavy tobacco smoker Quit status (tobacco): not considering quitting Second hand smoke exposure: Yes Smoking risk assessment/counseling performed?: No Alcohol intake: never Desire information about alcohol rehabilitation?: No Counseling given: No Desire information about substance/drug rehabilitation?: No Counseling given: No Adopted: No Caregiver/support person: Yes Lives independently: Yes Mental Status Exam MSE Comments: This is a slender white male in hospital scrubs with limited grooming and eye contact. No abnormal movements except for psychomotor retardation. Semi cooperative with exam in mild to moderate distress. Speech was decreased rate and volume. Mood described as depressed and tired and irritable, affect is congruent. Thought process, mostly organized. Thought content: patient endorses suicidal ideation but denies homicidal ideation, no delusions reported or noted and denies any auditory or visual hallucinations. Attention and concentration are intact and memory appeared somewhat reliable but none were formally tested. He is alert and oriented times three. Insight and judgment are impaired. Impulse control is impaired. Vitals/I&O/Wt Last Vital Signs Temp 98.0 F 01/02/23 22:00 Pulse 77 01/02/23 22:00 Resp 18 01/02/23 22:00 BP 108/66 01/02/23 22:00 Pulse Ox 97 01/02/23 22:00 O2 Del Method 01/02/23 20:44 Weight last 48 hrs Weight 63.503 kg Weight 63.503 kg Data NPU 01/02/23 17:20 01/02/23 17:20 A&P Assessment and plan (1) Suicidal ideation: (2) Amphetamine abuse: (3) Psychosis: Plan This is a 22 year old white man with a history of impulsivity, irritability and behavioral issues and genetic loading for mental issues and possible addiction issues who presents after a recent incident of irritability reporting success on previous medications and an openness to restart those medications at this time. 1. Continue current medications. Initiate Prozac 20 mg poq am and Abilify 5 mg poq am. 2. Encourage individual, group and milieu therapy 3. Continue q-15 minute check for safety 4. Recommend sober living treatment at the highest level of care to which the patient is willing to commit. Involuntary Hold Information 96 Hour Hold: 96 Hour Involuntary Admission: No Attestations NPU Medical Necessity Statement*: Inpatient hospitalization is medically necessary and the clinically appropriate intervention at this time. We will monitor medications and make changes as indicated. Patient will be in the hospital for over two midnights. Likely length of stay is three to five days. Coding Level of Care Code Acute Code for [facility] Fwd Diagnoses Suicidal ideation R45.851 Amphetamine abuse F15.10 Psychosis F29
[2023-01-03] MEDS: ARIPiprazole 10 mg Tablet 5 MG PO (09:31)
[2023-01-03] MEDS: fluoxetine 20 mg Capsule PO (09:32)
[2023-01-03] MEDS: nicotine 21 mg Patch 1 PATCH TRANSDERMA (10:54)
[2023-01-03 14:00] VITALS: BP 137/50; PULSE 88; RESP 16; TEMP 36.6; O2SAT 97
[2023-01-03 20:26] VITALS: BP 116/66; PULSE 76; RESP 18; TEMP 36.9; O2SAT 99
[2023-01-04 06:00] VITALS: BP 123/76; PULSE 68; RESP 18; TEMP 36.7; O2SAT 99
[2023-01-04] MEDS: ARIPiprazole 10 mg Tablet 5 MG PO (08:34)
[2023-01-04] MEDS: fluoxetine 20 mg Capsule PO (08:34)
[2023-01-04 14:00] VITALS: BP 128/73; PULSE 83; RESP 18; TEMP 36.6; O2SAT 98
--- NOTE | 2023-01-04 17:20 | W.PM.NPUPNS ---
Subjective NPU Subjective: Patient is a 22-year-old white male admitted with psychosis and increased irritability. He reports that he had not been on his medications for 2 to 3 years but simply needed to get started back on them again. He had reported having frequent fluctuations in his mood. He had continued to isolate himself on the milieu. He reported no side effects from the Abilify or Prozac. He had acknowledged a history of methamphetamine abuse. He had been minimally compliant and was unable to attend groups today. Mental Status Exam MSE Comments: This is a slender white male in hospital scrubs with limited grooming and eye contact. No abnormal movements except for psychomotor retardation. He was minimally cooperative with exam in mild to moderate distress. Speech was decreased rate and volume. Mood described as down. , His affect is flat. Thought process, mostly organized. There was generally a poverty of content. Thought content: patient endorses suicidal ideation but denies homicidal ideation, no delusions reported or noted and denies any auditory or visual hallucinations. Attention and concentration are intact and memory appeared somewhat reliable but none were formally tested. He is alert and oriented times three. Insight and judgment are impaired. Impulse control is impaired. Vitals/I&O/Wt Last Vital Signs Temp 98 F 01/04/23 14:00 Pulse 83 01/04/23 14:00 Resp 18 01/04/23 14:00 BP 128/73 01/04/23 14:00 Pulse Ox 98 01/04/23 14:00 O2 Del Method 01/02/23 20:44 Weight last 48 hrs Weight 63.503 kg Data NPU 01/02/23 17:20 01/02/23 17:20 A&P Assessment and plan (1) Suicidal ideation: (2) Amphetamine abuse: (3) Psychosis: Plan This is a 22 year old white man with a history of impulsivity, irritability and behavioral issues and genetic loading for mental issues and possible addiction issues who presents after a recent incident of irritability reporting success on previous medications and an openness to restart those medications at this time. 1. Continue Prozac 20mg in am and increase abilify 10mg in am. 2. Encourage individual, group and milieu therapy 3. Continue q-15 minute check for safety 4. Recommend sober living treatment at the highest level of care to which the patient is willing to commit. Involuntary Hold Information 96 Hour Hold: 96 Hour Involuntary Admission: No Attestations NPU Medical Necessity Statement*: Inpatient hospitalization is medically necessary and the clinically appropriate intervention at this time. We will monitor medications and make changes as indicated. Patient will be in the hospital for over two midnights. Likely length of stay is five to seven days. Coding Level of Care Code Acute Code for g Fwd Diagnoses Suicidal ideation R45.851 Amphetamine abuse F15.10 Psychosis F29
[2023-01-04 19:55] VITALS: BP 122/63; PULSE 68; RESP 18; TEMP 36.9; O2SAT 100
[2023-01-05 06:00] VITALS: BP 117/62; PULSE 58; RESP 16; TEMP 36.8; O2SAT 97
[2023-01-05] MEDS: fluoxetine 20 mg Capsule PO (08:31)
[2023-01-05] MEDS: ARIPiprazole 10 mg Tablet PO (08:32)
--- NOTE | 2023-01-05 09:19 | P.NPUPN_ITS ---
Subjective NPU Subjective: Patient is a 22-year-old white male admitted with psychosis and increased irritability. The patient had continue to isolate himself on the milieu. He had again reported that he had not been on these medications for several years. Staff notes the patient had been more verbal and reported that he was recovering from his use of methamphetamine. His urine was positive for methamphetamine on admission. He had reported that the Abilify had been helpful and stated that he had been feeling suicidal while residing with his mother and grandmother. He had continued to report hopes of being able to continue on these medications. He had reported an extended history of depression and was uncertain as to why he had not been on these medications for the last 2 years despite them reportedly helping him. Mental Status Exam MSE Comments: This is a slender white male in hospital scrubs with limited grooming and eye contact. No abnormal movements except for mild psychomotor retardation. He was more cooperative with exam in mild to moderate distress. Speech showed improved rate and volume. Mood described as getting there. , His affect is flat. Thought process was mostly organized but superficial. There was generally a poverty of content. Thought content: patient endorses suicidal ideation but denies homicidal ideation, no delusions reported or noted and denies any auditory or visual hallucinations. Attention and concentration are intact and memory appeared somewhat reliable but none were formally tested. He is alert and oriented to person place and time today. Insight and judgment are impaired. Impulse control is impaired. Vitals/I&O/Wt Last Vital Signs Temp 98.3 F 01/05/23 06:00 Pulse 58 L 01/05/23 06:00 Resp 16 01/05/23 06:00 BP 117/62 01/05/23 06:00 Pulse Ox 97 01/05/23 06:00 O2 Del Method 01/05/23 06:00 Data NPU 01/02/23 17:20 01/02/23 17:20 A&P Assessment and plan (1) Suicidal ideation: (2) Amphetamine abuse: (3) Psychosis: Plan This is a 22 year old white man with a history of impulsivity, irritability and behavioral issues and genetic loading for mental issues and possible addiction issues who presents after a recent incident of irritability reporting success on previous medications and an openness to restart those medications at this time. 1. Continue Prozac 20mg in am and increase abilify 15mg in am. 2. Encourage individual, group and milieu therapy 3. Continue q-15 minute check for safety 4. Recommend sober living treatment at the highest level of care to which the patient is willing to commit. Involuntary Hold Information 96 Hour Hold: 96 Hour Involuntary Admission: No Attestations NPU Medical Necessity Statement*: Inpatient hospitalization is medically necessary and the clinically appropriate intervention at this time. We will monitor medications and make changes as indicated. His likely length of stay is five to seven days. Coding Level of Care Code Acute Code for [facility] Fwd Diagnoses Suicidal ideation R45.851 Amphetamine abuse F15.10 Psychosis F29
[2023-01-05 14:00] VITALS: BP 111/67; PULSE 60; RESP 18; TEMP 36.8; O2SAT 99
[2023-01-05 19:51] VITALS: BP 122/77; PULSE 72; RESP 16; TEMP 36.8; O2SAT 94
[2023-01-06 06:00] VITALS: BP 118/67; PULSE 76; RESP 16; TEMP 36.8; O2SAT 97
--- NOTE | 2023-01-06 08:20 | PC.NURSE ---
wound to L side of neck, no signs of infection, dermabond still intact
[2023-01-06] MEDS: fluoxetine 20 mg Capsule PO (08:52)
[2023-01-06] MEDS: ARIPiprazole 30 mg Tablet 15 MG PO (08:52)
--- NOTE | 2023-01-06 13:40 | W.PM.NPUDCS ---
Diagnoses at Discharge Discharge Diagnosis (1) Suicidal ideation: Status: Acute (2) Amphetamine abuse: Status: Acute (3) Psychosis: Status: Acute Reason for Visit Reason for Visit: SI Brief History: History of Present Illness Tien Jain Jr is a 22 year old male The patient was admitted to the neuropsychiatric unit for definitive treatment of those issues. There have been crisis contacts by his mother secondary to what she described as out of control behavior which lead to him being brought to the emergency department. He ultimately agreed once he got to the hospital that his behavior had been out of control and he was willing to be admitted to the neuropsychiatric unit. The patient presents reporting that he has a past history of psychiatric treatment as a juvenile but denies any services since he has turned 18. He came to the hospital secondary to suicidal ideation and stress but he reported that he had been having conflict with his mother and grandmother with whom he lives, which has made things very difficult. He reports that he had been on lots of medications as a child including medication for adhd, depression and mood dysregulation. He had been on Abilify and Prozac at one point and reports they were quite helpful when he took them. He reports? he smokes cigarettes, drinks alcohol occasionally, smokes marijuana and denies any other illicit drug use. He has never been to rehab, denies any DUIs or other drug and alcohol related charges. He reports things started in his youth when he had problems with anger and impulsivity and was treated for it. He reports it was probably helpful but was rebellious and did not want to take the medications. He said in recent times he has really struggled with anger and irritability and said when he was taking the Prozac and Abilify those were not as present. He endorses feelings of helplessness, hopelessness, worthlessness, sleep difficulties, passive wish and most recently suicidal thoughts. He reports things have not been as enjoyable and he is frustrated all of the time. It has affect his ability to be consistent with work and his relationships extensively. He reports he probably does have some anxiety as well. Psychiatric History: As above. Substance Abuse History: As above. Family History: He endorses some mental health issues in his family, was unclear about addiction issues and denies any known suicide attempts or completions. Developmental History: He denies any issues with his or , learned to walk and talk and met his developmental milestones on time and denies any need for speech therapy, learning support or emotional support but did have some special education classes.? Psychosocial History: He reports his parents were together when he was born and he has an older sister and younger brother who are products of the same union but his father has 3 additional children. He reports his childhood was okay and denies any emotional, physical or sexual abuse. He denies CYS involvement. He denies any other traumatic events. He endorses being heterosexual. He has never been , has 3 biological children but struggles to see them due to his relationship with their mother, has never been in the and denies a jain belief system. He works with a bruno who does [employer] but recently things have been more tough. He currently lives in a camper with his mother and grandmother. Legal History: He reports he has been in penitentiary multiple times, the longest time of which was 1 month. Medical History: He denies any significant medical issues. Hospital Course Hospital Course During the hospitalization, patient had routine laboratory studies which were within normal limits except for few outliers. Additionally there was a general medical evaluation which was also within normal limits and revealed no new acute processes. At the time of discharge, lethality was denied and psychosis was resolving. Mood and anxiety were well managed. Patient endorsed a plan to avoid all drugs of abuse and follow-up with the aftercare recommendations of the treatment team. Patient was evaluated and deemed to be absent credible lethality, and had achieved the maximum benefit from an inpatient hospitalization, so was discharged. Involuntary Hold Information 96 Hour Hold: 96 Hour Involuntary Admission: No Mental Status Exam MSE Comments: This is a slender white male in hospital scrubs with limited grooming and improved eye contact. No abnormal movements were appreciated. He was more cooperative with exam in no acute distress. Speech showed improved rate and volume. Mood described as better. , His affect was better. Thought process was organized and focus. Thought content: patient denied suicidal ideation but denies homicidal ideation, no delusions reported or noted and denies any auditory or visual hallucinations. Attention and concentration are intact and memory appeared somewhat reliable but none were formally tested. He is alert and oriented to person place and time today. Insight and judgment appear improved. Impulse control appeared adequate on discharge. Discharge Data Studies Completed and Pending: Laboratory Results WBC 6.9 10^3/uL (4.0- 10.0) 01/02/23 17:20 RBC 5.21 10^6/uL (4.1 -5.3) 01/02/23 17:20 Hgb 15.3 g/dL (11.7-1 6.6) 01/02/23 17:20 Hct 44.8 % (42.0-52.0 ) 01/02/23 17:20 MCV 86.0 fl (80-94) 01/02/23 17: MCH 29.4 pg (28.0-34. 0) 01/02/23 17:20 MCHC 34.2 g/dL (30.0-3 6.0) 01/02/23 17: RDW 13.2 % (12.1-15.1 ) 01/02/23 17: Plt Count 285 10^3/cmm (130 -400) 01/02/23 17:20 MPV 11.4 fL (7.4-10.4 ) H 01/02/23 17:20 Neut % (Auto) 67.0 % 01/02/23 17:20 Lymph % (Auto) 22.6 % 01/02/23 17:20 King % (Auto) 7.5 % 01/02/23 17:20 Eos % (Auto) 1.9 % 01/02/23 17:20 Baso % (Auto) 0.7 % 01/02/23 17:20 Neut # (Auto) 4.61 10^3/uL (1.8 -7.7) 01/02/23 17:20 Lymph # (Auto) 1.6 10^3/uL (0.8- 4.8) 01/02/23 17:20 King # (Auto) 0.5 10^3/uL (0.2- 0.9) 01/02/23 17:20 Eos # (Auto) 0.1 10^3/uL (0.0- 0.8) 01/02/23 17:20 Baso # (Auto) 0.1 10^3/uL (0.0- 0.1) 01/02/23 17:20 Nucleated RBC % (a uto) 0 % 01/02/23 17: Nucleated RBCs # 0.0 /100WBC 01/02/23 17:20 Sodium 141 mmol/L (136-1 45) 01/02/23 17:20 Potassium 4.4 mmol/L (3.5-5 .1) 01/02/23 17:20 Chloride 105 mmol/L (98-10 7) 01/02/23 17:20 Carbon Dioxide 26 mmol/L (22-29) 01/02/23 17:20 Anion Gap 14.4 (5-19) 01/02/23 17:20 BUN 7 mg/dL (6-20) 01/02/23 17:20 Creatinine 0.9 mg/dL (0.7-1. 2) 01/02/23 17:20 GFR Calculation 105.5 mL/min (90- 130) 01/02/23 17:20 Glucose 76 mg/dL (65-115) 01/02/23 17:20 Calculated Osmolal ity 289 mOsm/kg (285- 295) 01/02/23 17:20 Calcium 9.1 mg/dL (8.5-10 .5) 01/02/23 17:20 Total Bilirubin 0.6 mg/dL (0.15-1 .2) 01/02/23 17:20 AST 24 U/L (0-40) 01/02/23 17:20 ALT 18 U/L (0-41) 01/02/23 17:20 Alkaline Phosphata se 85 U/L (40-130) 01/02/23 17:20 Total Protein 7.0 g/dL (6.6-8.7 ) 01/02/23 17:20 Albumin 4.6 g/dL (3.5-5.2 ) 01/02/23 17:20 Globulin 2.4 g/dL (1.3-4.6 ) 01/02/23 17:20 Urine Color Yellow (Yellow) 01/02/23 17:12 Urine Appearance Clear (CLEAR) 01/02/23 17:12 Urine pH 5 (5-7) 01/02/23 17:12 Ur Specific Gravit y 1.020 (1.005-1.0 30) 01/02/23 17:12 Urine Protein Neg (Negative) 01/02/23 17:12 Urine Glucose (UA) Norm (Normal) 01/02/23 17:12 Urine Ketones Negative (Negati ve) 01/02/23 17:12 Urine Blood Neg (Negative) 01/02/23 17:12 Urine Nitrate Negative (Negati ve) 01/02/23 17:12 Urine Bilirubin Neg (Negative) 01/02/23 17:12 Urine Urobilinogen Norm mg/dL (Negat maxx) 01/02/23 17:12 Ur Leukocyte Rhona ase Negative (Negati ve) 01/02/23 17:12 Salicylates < 0.3 mg/dL (3-10 ) L 01/02/23 17:20 Urine Opiates Scre en Negative ng/mL (N egative) 01/02/23 17:12 Acetaminophen < 5.0 ug/mL (10-3 0) L 01/02/23 17:20 Ur Barbiturates Sc reen Negative ng/mL (N egative) 01/02/23 17:12 Ur Phencyclidine S crn Negative ng/mL (N egative) 01/02/23 17:12 Ur Amphetamines Sc reen Positive ng/mL (N egative) H 01/02/23 17:12 U Benzodiazepines Scrn Negative ng/mL (N egative) 01/02/23 17:12 Urine Cocaine Scre en Negative ng/mL (N egative) 01/02/23 17:12 U Marijuana (THC) Screen Positive ng/mL (N egative) H 01/02/23 17:12 Ethyl Alcohol 28 mg/dL (0-10) H 01/02/23 17:20 Vitals: Last Vital Signs Temp 98.2 F 01/06/23 06:00 Pulse 76 01/06/23 06:00 Resp 16 01/06/23 06:00 BP 118/67 01/06/23 06:00 Pulse Ox 97 01/06/23 06:00 O2 Del Method Room Air 01/06/23 06:00 Discharge Plan Discharge Patient Disposition: Home Condition: Stable Prescriptions: New aripiprazole 30 mg Tablet 15 mg PO DAILY 30 Days Qty: 15 1RF fluoxetine 20 mg Capsule 20 mg PO DAILY 30 Days Qty: 30 1RF Discharge Orders: Discharge Order (Routine); Ordered 01/06/23 Ordered By: Lalito Pino Referrals: [facility] [Outside] - 01/07/23 2:30 pm Kelin Ortez FNP-C [Primary Care Provider] - Discharge Diet: Usual diet Discharge Activity: Resume usual activity Patient Instructions: Depression, Fluoxetine (By mouth), Aripiprazole (By mouth), Suicide Prevention (DC), Opioid Safety Discharge Attestations NPU Time Spent in Discharge Care*: less than 30 min Specific Discharge Activities: Specific discharge activities: educating patient, documenting/other paperwork and evaluating patient/reviewing data Coding Level of Care Code Acute Chg FW DC note Diagnoses Suicidal ideation R45.851 Amphetamine abuse F15.10 Psychosis F29
[2023-01-06 13:46] VITALS: BP 118/67; PULSE 76; RESP 16; TEMP 36.8; O2SAT 97
== END 2023-01-06 13:57 | disposition home or self-care (01) | DRG 885 ==
LOC: ER 19:15 → NP 20:16
PROVIDERS: Admitting Provider Psychiatry & Neurology Psychiatry; Emergency Provider Emergency Medicine; PCP Nurse Practitioner Family; Visit Provider Psychiatry & Neurology Psychiatry
DX: F23 Brief psychotic disorder (principal); R45.851 Suicidal ideations; F15.10 Other stimulant abuse, uncomplicated; F12.90 Cannabis use, unspecified, uncomplicated; F10.90 Alcohol use, unspecified, uncomplicated; F17.210 Nicotine dependence, cigarettes, uncomplicated; Z63.79 Other stressful life events affecting family and household; Z62.820 Parent-biological child conflict; Z81.8 Family history of other mental and behavioral disorders
CPT/HCPCS: 12001; 36415; 80053; 80306; 80307; 81003; 85025; 97150; 97165; 99285

== ENCOUNTER 2024-06-21 22:34 | Emergency (ER) | payer BC, MEDICAID, SELFPAY ==
[2024-06-21 22:41] VITALS: BP 114/75; PULSE 113; RESP 18; TEMP 38; O2SAT 98; BMI 22.7
--- NOTE | 2024-06-21 23:30 | XRR_ITS ---
PROCEDURE INFORMATION: Exam: XR Chest Exam date and time: 06/21/2024 11:41 PM Age: 24 years old Clinical indication: Cough and fever; Additional info: Cough, fever TECHNIQUE: Imaging protocol: Radiologic exam of the chest. Views: 1 view. COMPARISON: CR XR chest 1V portable [id number] 05/09/2020 1:39 PM FINDINGS: Lungs: No consolidation. Pleural spaces: No pleural effusion. No pneumothorax. Heart/Mediastinum: No cardiomegaly. Bones/joints: No acute findings. XR/XR chest 1V portable [id number] IMPRESSION: No acute chest findings.
[2024-06-21 23:32] LABS: Rapid Strep A Test Negative (Negative)
--- NOTE | 2024-06-21 23:33 | ED_ITS ---
HPI - URI/Sore Throat General: Chief Complaint: Upper Respiratory Infection Stated Complaint: stuffy nose Time Seen by Provider: 06/21/24 22:46 Source: patient Mode of arrival: ambulatory Limitations: no limitations History of Present Illness: Patient is a 24-year-old male presenting to the emergency department complaining of fever and cough onset past couple of days. Denies any sick contacts. States he has a history of asthma and has been using his inhaler more. Also is reporting chills and sore throat. Has not taken anything for symptoms. Elevated temperature noted in triage, and noted to be tachycardic. No other symptoms reported at this time. MD elicited complaint: fever and cough Onset (ago): day(s) Consistency: constant Relieving factors: nothing Associated symptoms: Reports chills and fever(s); Deny abdominal pain, chest pain, diarrhea, ear or mastoid pain, headache(s), nausea or vomiting Related Data Previous Rx's Medication Instructions Recorded albuterol sulfate 90 mcg/actuation 1 - 2 inh inhalation Q6H PRN 11/03/23 aerosol inhaler (ProAir HFA) shortness of breath or wheezing #8.5 grams azithromycin 250 mg tablet See Rx Instructions PO .COMPLEX #6 11/03/23 tabs budesonide-formoterol HFA 80 1 inh inhalation BID #10.2 grams 11/03/23 mcg-4.5 mcg/actuation aerosol inhaler (Symbicort) promethazine-DM 6.25 mg-15 mg/5 mL 5 ml PO Q6H PRN cough #118 mL 11/03/23 oral syrup Allergies Allergy/AdvReac Type Severity Reaction Status Date / Time No Known Allergies Allergy Unverified 11/03/23 08:32 Review of Systems General: Reports: 10 or more systems reviewed and unremarkable except in HPI and below Const: Reports: fever(s) and chills; Denies: fatigue Eyes: Denies: change in vision ENMT: Reports: throat pain; Denies: ear or mastoid pain or nasal discharge Card: Denies: chest pain, palpitations, swelling of feet/ankles or lightheadedness Resp: Reports: non-productive cough; Denies: dyspnea or wheezing GI: Denies: abdominal pain, nausea, vomiting, diarrhea or constipation : Denies: flank pain, difficulty urinating, dysuria or urinary frequency Musc: Denies: neck pain, back pain or joint pain Skin/Breast: Denies: rash Neuro: Denies: headache(s), numbness in extremities or weakness in extremities PFSH ED PFSH: Medical History Cough Asthma Otitis media of both ears Right bundle branch block Social History Smoking and tobacco/nicotine status: heavy tobacco/nicotine user Quit status (tobacco/nicotine): not considering quitting Second hand smoke exposure: Yes Alcohol intake: never Substance/Drug Use: current Adopted: No Caregiver/support person: Yes Lives independently: Yes Physical Exam Const: COMMON NORMALS: no acute distress and no limitations GENERAL APPEARANCE: cooperative and well developed ORIENTATION/CONSCIOUSNESS: Yes awake HENMT: COMMON NORMALS: normocephalic, atraumatic, hearing grossly normal bilaterally, moist oral mucous membranes and oropharynx normal HEAD & SCALP: normocephalic and atraumatic Eye: COMMON NORMALS: Equal, round and reactive pupils present, EOMs intact bilaterally and conjunctivae normal CONJUNCTIVA: Yes conjunctivae normal PUPIL: Yes Equal, round and reactive pupils present Neck/C-Spine: COMMON NORMALS: full ROM, no lymphadenopathy, supple and no JVD Resp: COMMON NORMALS: normal respiratory effort, No retractions, No use of accessory muscles and clear to auscultation bilaterally EFFORT & INSPECTION: Yes Actively coughing non-productive AUSCULTATION: clear to auscultation bilaterally Cardio: COMMON NORMALS: no JVD, regular rhythm, No clicks present (Cardio), No murmurs present (Cardio) and No rub (Cardio) RATE: tachycardic RHYTHM: regular rhythm GI: COMMON NORMALS: Normal to inspection, nondistended, normoactive bowel sounds present, Soft to palpation and non-tender AUSCULTATION: Yes normoactive bowel sounds PALPATION: Yes Soft to palpation RECTAL EXAM: Yes deferred Extremity: COMMON NORMALS: normal to inspection, full ROM and capillary refill normal Skin: COMMON NORMALS: no rashes or lesions noted GENERAL SKIN EXAM: no rashes or lesions noted Course Vital Signs: Vital signs: Vital Signs Temperature 100.4 F H 06/21/24 22:41 Pulse Rate 98 06/22/24 00:40 Respiratory Rate 18 06/22/24 00:40 Blood Pressure 110/68 06/22/24 00:40 Pulse Oximetry 99 06/22/24 00:40 Oxygen Delivery Me thod Room Air 06/22/24 00:04 MDM - URI/Sore Throat Medical Decision Making Patient presented with fevers and cough today. Denied any sick contacts. Swab for COVID flu and strep all today were negative. Chest x-ray did not demonstrate any acute abnormalities. He is asthmatic, has been using his inhaler more recently, do believe that this is accommodation of a viral illness as well as asthma exacerbation and he is encouraged to continue his inhaler at home. Offered him a breathing treatment which she denied. Told him to alternate Tylenol and ibuprofen for any fevers or bodyaches, and to enact contact precaution. Reasons to return discussed. Lab Data Radiology Impressions Chest X-Ray 06/21/24 23:30 IMPRESSION: No acute chest findings. Laboratory Results Influenza Type A Ag Negative (Negative) 06/21/24 23:20 Influenza Type B Ag Negative (Negative) 06/21/24 23:20 SARS-CoV-2 Ag (Rapid) negative (Negative) 06/21/24 23:20 Group A Strep Rapid Negative (Negative) 06/21/24 23:20 All radiology interpretation(s) finalized by discharge Discharge Plan Discharge Patient Disposition: Home Clinical Impression: Viral syndrome Asthma exacerbation Qualifiers: Asthma severity: mild Asthma persistence: intermittent Qualified Code(s): J45.21 - Mild intermittent asthma with (acute) exacerbation Condition: Stable Prescriptions: No Action budesonide-formoterol [Symbicort] 80-4.5 mcg/actuation HFA aerosol inhaler 1 inh inhalation BID Qty: 10.2 2RF albuterol sulfate [ProAir HFA] 90 mcg/actuation HFA aerosol inhaler 1 - 2 inh inhalation Q6H PRN (Reason: shortness of breath or wheezing) Qty: 8.5 2RF promethazine-DM 6.25-15 mg/5 mL syrup 5 ml PO Q6H PRN (Reason: cough) Qty: 118 1RF azithromycin 250 mg tablet See Rx Instructions PO .COMPLEX Qty: 6 0RF Rx Instructions: take 500 mg today (day 1), then 250 mg for 4 days (days 2-5) PO Discharge Orders: Discharge ED (Routine); Ordered 06/22/24 Ordered By: Danilo Eldridge Referrals: Kelin Ortez FNP-C [Primary Care Provider] - Discharge Diet: Usual diet Discharge Activity: Increase activity as tolerated Patient Instructions: Asthma Exacerbation - Adult, Viral Syndrome (ED) Activity Restrictions/Additional Instructions: Continue using inhaler as needed at home. Drink plenty of fluids. Tylenol and ibuprofen for any fevers or bodyaches. Contagion precaution. Please follow-up with your primary care next couple of days as discussed. Return with any new or concerning symptoms. 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
[2024-06-21 23:39] LABS: SARS Covid-2 Antigen negative (Negative)
[2024-06-21 23:44] LABS: Influenza A by IFA Negative (Negative); Influenza B by IFA Negative (Negative)
[2024-06-22 00:04] VITALS: BP 119/75; PULSE 111; RESP 20; O2SAT 96
[2024-06-22] MEDS: acetaminophen 500 mg Tablet 1000 MG PO (00:04)
[2024-06-22 00:40] VITALS: BP 110/68; PULSE 98; RESP 18; O2SAT 99
== END 2024-06-22 00:41 | disposition home or self-care (01) ==
PROVIDERS: Emergency Provider Physician Assistant; PCP Nurse Practitioner Family
DX: B34.9 Viral infection, unspecified (principal); J45.21 Mild intermittent asthma with (acute) exacerbation; Z11.52 Encounter for screening for COVID-19; Z72.0 Tobacco use
CPT/HCPCS: 71045; 87081; 87426; 87804; 87880; 99284

== ENCOUNTER 2024-09-23 17:41 | Inpatient (IN) | payer BC, MEDICAID, SELFPAY ==
[2024-09-23 17:51] VITALS: BP 138/79; PULSE 97; RESP 16; TEMP 37.8; O2SAT 98; BMI 21.4
[2024-09-23 18:02] LABS: Basophils % 0.3 %; Eosinophils % 0.2 %; Hematocrit 44.7 % (37-53); Lymphocytes # 1.4 10^3/uL (0.8-4.8); Lymphocytes % 11.3 %; Mean Corpuscular HGB Conc 34.7 g/dL (30-55); Mean Corpuscular Hemoglobin 29.8 pg (27-33); Mean Platelet Volume 11.3 fL (7.4-10.4); Monocytes # 0.7 10^3/uL (0.2-0.9); Monocytes % 5.6 %; Neutrophils # 10.33 10^3/uL (1.8-7.7); Neutrophils % 82.3 %; Nucleated Red Blood Cells % 0 %; Platelet Count 292 10^3/cmm (157-399); Red Cell Distribution Width 12.6 % (12.1-15.1); White Blood Count 12.55 10^3/uL (3.29-11.43)
--- NOTE | 2024-09-23 18:12 | W.ED.PSYCHS ---
HPI - Psych General: Chief Complaint: Psychiatric Symptoms Stated Complaint: mhe Time Seen by Provider: 09/23/24 17:46 Source: patient Mode of arrival: ambulatory Limitations: no limitations History of Present Illness: 24-year-old male states has been having suicidal ideations over the last week he states he had thoughts of cutting his neck he does have some superficial scratches to his neck he states he has been on meds and has not been on them. He has no other complaints at this time denies any worse or improving factors. Associated symptoms: Reports suicidal ideation Related Data Previous Rx's Medication Instructions Recorded albuterol sulfate 90 mcg/actuation 1 - 2 inh inhalation Q6H PRN 11/03/23 aerosol inhaler (ProAir HFA) shortness of breath or wheezing #8.5 grams azithromycin 250 mg tablet See Rx Instructions PO .COMPLEX #6 11/03/23 tabs budesonide-formoterol HFA 80 1 inh inhalation BID #10.2 grams 11/03/23 mcg-4.5 mcg/actuation aerosol inhaler (Symbicort) promethazine-DM 6.25 mg-15 mg/5 mL 5 ml PO Q6H PRN cough #118 mL 11/03/23 oral syrup Allergies Allergy/AdvReac Type Severity Reaction Status Date / Time No Known Allergies Allergy Verified 09/23/24 17:54 Review of Systems Const: Denies: fever(s), chills, body aches or change in appetite ENMT: Denies: throat pain or dental pain Card: Denies: chest pain Resp: Denies: dyspnea GI: Denies: abdominal pain, nausea, vomiting or diarrhea Musc: Denies: neck pain or back pain Skin/Breast: Denies: rash Neuro: Denies: headache(s) Psych: Reports: suicidal ideation [facility] ED PFSH: Medical History Cough Asthma Otitis media of both ears Right bundle branch block Social History Smoking and tobacco/nicotine status: heavy tobacco/nicotine user Quit status (tobacco/nicotine): not considering quitting Second hand smoke exposure: Yes Alcohol intake: never Substance/Drug Use: current Adopted: No Caregiver/support person: Yes Lives independently: Yes Physical Exam Const: COMMON NORMALS: no acute distress, patient oriented x3 and healthy appearing HENMT: COMMON NORMALS: normocephalic and atraumatic HEAD & SCALP: normocephalic and atraumatic Eye: COMMON NORMALS: conjunctivae normal CONJUNCTIVA: Yes conjunctivae normal Neck/C-Spine: COMMON NORMALS: full ROM and supple Chest: COMMONS NORMALS: normal inspection of the chest Resp: COMMON NORMALS: normal respiratory effort Cardio: COMMON NORMALS: regular rate RATE: regular rate Extremity: COMMON NORMALS: normal to inspection and full ROM Neuro: COMMON NORMALS: patient oriented x3, moves all extremities and no focal motor deficits Psych: COMMON NORMALS: mental status grossly normal, Normal thought process present and cooperative THOUGHT PROCESS: Normal thought process present THOUGHT CONTENT: Yes Suicidality present Skin: COMMON NORMALS: no rashes or lesions noted and no wounds GENERAL SKIN EXAM: no rashes or lesions noted Course Vital Signs: Vital signs: Vital Signs Temperature 100.0 F H 09/23/24 17:51 Pulse Rate 97 09/23/24 17:51 Respiratory Rate 16 09/23/24 17:51 Blood Pressure 138/79 09/23/24 17:51 Pulse Oximetry 98 09/23/24 17:51 [facility] - Psych Medical Decision Making Patient presents for suicidal ideation he is placed on a 96-hour hold he is medically cleared will admit the psych lopez. Medical Records I reviewed the patient's medical records. Lab Data I reviewed the patient's lab results. 09/23/24 17:56 09/23/24 17:56 Laboratory Results WBC 12.55 10^3/uL (3.29-11.43) H 09/23/24 17:56 RBC 5.20 10^6/uL (3.85-5.65) 09/23/24 17:56 Hgb 15.50 g/dL (11.27-16.99) 09/23/24 17:56 Hct 44.7 % (37-53) 09/23/24 17:56 MCV 86.0 fl (82-101) 09/23/24 17:56 MCH 29.8 pg (27-33) 09/23/24 17:56 MCHC 34.7 g/dL (30-55) 09/23/24 17:56 RDW 12.6 % (12.1-15.1) 09/23/24 17:56 Plt Count 292 10^3/cmm (157-399) 09/23/24 17:56 MPV 11.3 fL (7.4-10.4) H 09/23/24 17:56 Neut % (Auto) 82.3 % 09/23/24 17:56 Lymph % (Auto) 11.3 % 09/23/24 17:56 [place] % (Auto) 5.6 % 09/23/24 17:56 Eos % (Auto) 0.2 % 09/23/24 17:56 Baso % (Auto) 0.3 % 09/23/24 17:56 Neut # (Auto) 10.33 10^3/uL (1.8-7.7) H 09/23/24 17:56 Lymph # (Auto) 1.4 10^3/uL (0.8-4.8) 09/23/24 17:56 [place] # (Auto) 0.7 10^3/uL (0.2-0.9) 09/23/24 17:56 Eos # (Auto) 0.0 10^3/uL (0.0-0.8) 09/23/24 17:56 Baso # (Auto) 0.0 10^3/uL (0.0-0.1) 09/23/24 17:56 Nucleated RBC % (auto) 0 % 09/23/24 17:56 Nucleated RBCs # 0.0 /100WBC 09/23/24 17:56 Sodium 140 mmol/L (136-145) 09/23/24 17:56 Potassium 3.8 mmol/L (3.5-5.1) 09/23/24 17:56 Chloride 102 mmol/L (98-107) 09/23/24 17:56 Carbon Dioxide 29 mmol/L (22-29) 09/23/24 17:56 Anion Gap 12.8 (5-19) 09/23/24 17:56 BUN 8 mg/dL (6-20) 09/23/24 17:56 Creatinine 0.8 mg/dL (0.7-1.2) 09/23/24 17:56 GFR Calculation 118.8 mL/min (90-130) 09/23/24 17:56 Glucose 90 mg/dL (65-115) 09/23/24 17:56 Calculated Osmolality 288 mOsm/kg (285-295) 09/23/24 17:56 Calcium 9.3 mg/dL (8.5-10.5) 09/23/24 17:56 Total Bilirubin 0.5 mg/dL (0.15-1.2) 09/23/24 17:56 AST 28 U/L (0-40) 09/23/24 17:56 ALT 14 U/L (0-41) 09/23/24 17:56 Alkaline Phosphatase 94 U/L (40-130) 09/23/24 17:56 Total Protein 7.5 g/dL (6.6-8.7) 09/23/24 17:56 Albumin 4.6 g/dL (3.5-5.2) 09/23/24 17:56 Globulin 2.9 g/dL (1.3-4.6) 09/23/24 17:56 Salicylates 0.4 mg/dL (3-10) L 09/23/24 17:56 Acetaminophen < 5.0 ug/mL (10-30) L 09/23/24 17:56 Ethyl Alcohol < 10 mg/dL (0-10) 09/23/24 17:56 No radiology studies performed this visit Discharge Plan Discharge Patient Disposition: Admitted As Inpatient Clinical Impression: Suicidal ideation Condition: Stable Prescriptions: No Action budesonide-formoterol [Symbicort] 80-4.5 mcg/actuation HFA aerosol inhaler 1 inh inhalation BID Qty: 10.2 2RF albuterol sulfate [ProAir HFA] 90 mcg/actuation HFA aerosol inhaler 1 - 2 inh inhalation Q6H PRN (Reason: shortness of breath or wheezing) Qty: 8.5 2RF promethazine-DM 6.25-15 mg/5 mL syrup 5 ml PO Q6H PRN (Reason: cough) Qty: 118 1RF azithromycin 250 mg tablet See Rx Instructions PO .COMPLEX Qty: 6 0RF Rx Instructions: take 500 mg today (day 1), then 250 mg for 4 days (days 2-5) PO Referrals: Kelin Ortez FNP-C [Primary Care Provider] - Coding Level of Care Code 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
[2024-09-23 18:23] LABS: Alanine Aminotransferase 14 U/L (0-41); Albumin Level 4.6 g/dL (3.5-5.2); Alkaline Phosphatase 94 U/L (40-130); Anion Gap 12.8 (5-19); Aspartate Amino Transferase 28 U/L (0-40); Blood Urea Nitrogen 8 mg/dL (6-20); Calcium 9.3 mg/dL (8.5-10.5); Carbon Dioxide 29 mmol/L (22-29); Chloride 102 mmol/L (98-107); Creatinine Clr Calc Pharmacy 138.4114; Globulin 2.9 g/dL (1.3-4.6); Glomerular Filtration Rate 118.8 mL/min (90-130); Glucose 90 mg/dL (65-115); Osmolality Calculated 288 mOsm/kg (285-295); Potassium 3.8 mmol/L (3.5-5.1); Salicylate 0.4 mg/dL (3-10); Sodium 140 mmol/L (136-145); Total Bilirubin 0.5 mg/dL (0.15-1.2); Total Protein 7.5 g/dL (6.6-8.7)
[2024-09-23 18:34] LABS: Acetaminophen < 5.0 ug/mL (10-30); Alcohol Level < 10 mg/dL (0-10)
[2024-09-23 20:38] VITALS: BP 120/79; PULSE 97; RESP 16; TEMP 36.8; O2SAT 77
[2024-09-23] MEDS: trazodone 50 mg Tablet PO (21:13)
[2024-09-23 22:00] VITALS: BP 120/79; PULSE 97; RESP 16; TEMP 36.8; O2SAT 77
[2024-09-24 06:00] VITALS: BP 106/67; PULSE 92; RESP 14; TEMP 531.3; TEMP 988.3; O2SAT 96
[2024-09-24 09:14] LABS: Amphetamines Screen Urine Negative (Negative); Barbiturates Screen Urine Negative (Negative); Benzodiazepines Screen Urine Negative (Negative); Cocaine Screen Urine Negative (Negative); Opiate Screen Urine Negative (Negative); PCP Screen Urine Negative (Negative); THC Screen Urine Positive (Negative)
--- NOTE | 2024-09-24 10:49 | W.PM.NPUH&PS ---
Providers/Chief Complaint Admitting Physician: Javi Alston MD Primary Care Provider: KLEVER Lauren Chief Complaint: mhe HPI NPU History of Present Illness Tien Jain Jr is a 24 year old male who presented to the emergency department with the following report: Chief Complaint: Psychiatric Symptoms Stated Complaint: mhe Time Seen by Provider: 09/23/24 17:46 Source: patient Mode of arrival: ambulatory Limitations: no limitations History of Present Illness: 24-year-old male states has been having suicidal ideations over the last week he states he had thoughts of cutting his neck he does have some superficial scratches to his neck he states he has been on meds and has not been on them. He has no other complaints at this time denies any worse or improving factors. Associated symptoms: Reports suicidal ideation He was admitted to the neuropsychiatric unit for definitive treatment of those issues. He is known to the psychiatric community through mostly his past inpatient services though he has been in the emergency department multiple times. His last discharge was in December 2022 and an excerpt of that discharge summary is included below for history and context and the fact that he denies any substantive changes. He presents today reporting that after his discharge he took the medication until he had no medications left or any refills left but had not gotten himself connected with services to obtain new prescriptions. He reports that the medications were very helpful and that it was a big mistake to allow himself to run out. He denies any significant changes in his life and reports that stressors have led him to having suicidal thoughts again and that he wanted to restart his medications. We discussed the risks, benefits and alternatives of restarting Prozac and Abilify and he understood and agreed to proceed as is documented in his note. Per his 01/06/2023 [facility] inpatient psychiatric discharge summary: Discharge Diagnosis (1) Suicidal ideation: Status: Acute (2) Amphetamine abuse: Status: Acute (3) Psychosis: Status: Acute Reason for Visit Reason for Visit: SI Brief History: History of Present Illness Tien Jain Jr is a 22 year old male The patient was admitted to the neuropsychiatric unit for definitive treatment of those issues. There have been crisis contacts by his mother secondary to what she described as out of control behavior which lead to him being brought to the emergency department. He ultimately agreed once he got to the hospital that his behavior had been out of control and he was willing to be admitted to the neuropsychiatric unit. The patient presents reporting that he has a past history of psychiatric treatment as a juvenile but denies any services since he has turned 18. He came to the hospital secondary to suicidal ideation and stress but he reported that he had been having conflict with his mother and grandmother with whom he lives, which has made things very difficult. He reports that he had been on lots of medications as a child including medication for adhd, depression and mood dysregulation. He had been on Abilify and Prozac at one point and reports they were quite helpful when he took them. He reports he smokes cigarettes, drinks alcohol occasionally, smokes marijuana and denies any other illicit drug use. He has never been to rehab, denies any DUIs or other drug and alcohol related charges. He reports things started in his youth when he had problems with anger and impulsivity and was treated for it. He reports it was probably helpful but was rebellious and did not want to take the medications. He said in recent times he has really struggled with anger and irritability and said when he was taking the Prozac and Abilify those were not as present. He endorses feelings of helplessness, hopelessness, worthlessness, sleep difficulties, passive wish and most recently suicidal thoughts. He reports things have not been as enjoyable and he is frustrated all of the time. It has affect his ability to be consistent with work and his relationships extensively. He reports he probably does have some anxiety as well. Psychiatric History: As above. Substance Abuse History: As above. Family History: He endorses some mental health issues in his family, was unclear about addiction issues and denies any known suicide attempts or completions. Developmental History: He denies any issues with his or , learned to walk and talk and met his developmental milestones on time and denies any need for speech therapy, learning support or emotional support but did have some special education classes. Psychosocial History: He reports his parents were together when he was born and he has an older sister and younger brother who are products of the same union but his father has 3 additional children. He reports his childhood was okay and denies any emotional, physical or sexual abuse. He denies C[employer] involvement. He denies any other traumatic events. He endorses being heterosexual. He has never been , has 3 biological children but struggles to see them due to his relationship with their mother, has never been in the and denies a jew belief system. 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 He currently lives in a camper with his mother and grandmother. Legal History: He reports he has been in half-way multiple times, the longest time of which was 1 month. Medical History: He denies any significant medical issues. Hospital Course During the hospitalization, patient had routine laboratory studies which were within normal limits except for few outliers. Additionally there was a general medical evaluation which was also within normal limits and revealed no new acute processes. At the time of discharge, lethality was denied and psychosis was resolving. Mood and anxiety were well managed. Patient endorsed a plan to avoid all drugs of abuse and follow-up with the aftercare recommendations of the treatment team. Patient was evaluated and deemed to be absent credible lethality, and had achieved the maximum benefit from an inpatient hospitalization, so was discharged. Meds NPU Home Medications Medication Instructions Recorded Confirmed Last Taken Type albuterol sulfate 90 mcg/actuation 1 - 2 inh inhalation Q6H PRN 11/03/23 09/23/24 Unknown Rx aerosol inhaler (ProAir HFA) shortness of breath or wheezing #8.5 grams budesonide-formoterol HFA 80 1 inh inhalation BID #10.2 grams 11/03/23 09/23/24 Unknown Rx mcg-4.5 mcg/actuation aerosol inhaler (Symbicort) Allergies Allergy/AdvReac Type Severity Reaction Status Date / Time No Known Allergies Allergy Verified 09/23/24 17:54 PFS NPU PFSH: Medical History Cough Asthma Otitis media of both ears Right bundle branch block Social History Smoking and tobacco/nicotine status: heavy tobacco/nicotine user Quit status (tobacco/nicotine): not considering quitting Second hand smoke exposure: Yes Alcohol intake: never Substance/Drug Use: current Adopted: No Caregiver/support person: Yes Lives independently: Yes Mental Status Exam MSE Comments: This is a slender white male in hospital scrubs with limited grooming and eye contact. No abnormal movements except for psychomotor retardation. Cooperative with exam in mild to moderate distress. Speech was decreased rate and volume. Mood described as depressed, affect is congruent. Thought process, mostly organized. Thought content: patient endorses suicidal ideation but denies homicidal ideation, no delusions reported or noted and denies any auditory or visual hallucinations. Attention and concentration are intact and memory appeared somewhat reliable but none were formally tested. He is alert and oriented times three. Insight and judgment are fair. Impulse control is impaired. Vitals/I&O/Wt Last Vital Signs Temp 988.3 F H 09/24/24 06:00 Pulse 92 09/24/24 06:00 Resp 14 09/24/24 06:00 BP 106/67 09/24/24 06:00 Pulse Ox 96 09/24/24 06:00 O2 Del Method Room Air 09/24/24 06:00 09/23/24 09/24/24 09/24/24 22:59 06:59 14:59 Intake Total 0 / 0 Balance 0 / 0 Weight last 48 hrs Weight 65.771 kg Weight 65.771 kg Data NPU 09/23/24 17:56 09/23/24 17:56 A&P Assessment and plan (1) Suicidal ideation: (2) Amphetamine abuse: (3) Psychosis: (4) Suicidal ideation: (5) Major depressive disorder, recurrent: (6) Cannabis use disorder: Plan This is a 24 year old white man with a history of impulsivity, irritability and behavioral issues and genetic loading for mental issues and possible addiction issues, unknown from past inpatient stay who presents reporting that he discontinued the medication and has fallen back into the same scenario that led to his last hospitalization. 1. Restart Prozac 20 mg poq am and Abilify at 10 mg poq am. 2. Encourage individual, group and milieu therapy 3. Continue q-15 minute check for safety 4. Recommend sober living treatment at the highest level of care to which the patient is willing to commit. Involuntary Hold Information 96 Hour Hold: 96 Hour Involuntary Admission: Yes 96 Hour Hold Ending Date: 10/02/24 96 Hour Hold Ending Time: 00:01 Other Hold: Hold End Date: 10/02/23 Attestations NPU Medical Necessity Statement*: Inpatient hospitalization is medically necessary and the clinically appropriate intervention at this time. We will monitor medications and make changes as indicated. Patient will be in the hospital for over two midnights. Likely length of stay is three to five days. Coding Level of Care Code Acute Code for g Fwd Diagnoses Suicidal ideation R45.851 Amphetamine abuse F15.10 Psychosis F29 Major depressive disorder, recurrent F33.9 Cannabis use disorder F12.90
[2024-09-24] MEDS: nicotine 21 mg Patch 1 PATCH TRANSDERMA (11:00)
[2024-09-24] MEDS: fluoxetine 20 mg Capsule PO (12:16)
[2024-09-24] MEDS: ARIPiprazole 10 mg Tablet PO (12:16)
--- NOTE | 2024-09-24 12:51 | PC.NURSE ---
Patient's 96 hour hold rights read to patient in ER. Patient verbalized understanding stated he has been placed in a 96 hour hold before.
[2024-09-24 14:00] VITALS: BP 122/78; PULSE 80; RESP 16; TEMP 36.6; O2SAT 99
[2024-09-24 21:24] VITALS: BP 114/68; PULSE 91; RESP 18; TEMP 36.7; O2SAT 96
[2024-09-25 06:00] VITALS: BP 121/61; PULSE 71; RESP 16; TEMP 36.7; O2SAT 98
[2024-09-25] MEDS: ARIPiprazole 10 mg Tablet PO (08:30)
[2024-09-25] MEDS: fluoxetine 20 mg Capsule PO (08:30)
[2024-09-25] MEDS: nicotine 2 mg Gum BUCCAL (09:25)
[2024-09-25] MEDS: nicotine 4 mg lozenge MUCOUS MEM ×2 (12:43→15:30)
[2024-09-25 14:00] VITALS: BP 120/82; PULSE 91; RESP 18; TEMP 37.2; O2SAT 100
--- NOTE | 2024-09-25 15:29 | P.NPUPN_ITS ---
Subjective NPU 2 Subjective: Patient presented today reporting that he was feeling better. He discussed that things have been more positive the last few days and he had been feeling more optimistic. He denied any side effects to the medication and reported that he had spoken with the social work team and discussed a desire to start working on discharge planning. Mental Status Exam 2 MSE Comments: This is a slender white male in hospital scrubs with limited grooming and eye contact. No abnormal movements except for psychomotor retardation. Cooperative with exam in mild distress. Speech was decreased rate and volume. Mood described as getting better, affect is congruent. Thought process, mostly organized. Thought content: patient endorses suicidal ideation but denies homicidal ideation, no delusions reported or noted and denies any auditory or visual hallucinations. Attention and concentration are intact and memory appeared somewhat reliable but none were formally tested. He is alert and oriented times three. Insight and judgment are fair. Impulse control is impaired. Vitals/I&O/Wt Last Vital Signs Temp 99 F 09/25/24 14:00 Pulse 91 09/25/24 14:00 Resp 18 09/25/24 14:00 BP 120/82 09/25/24 14:00 Pulse Ox 100 09/25/24 14:00 O2 Del Method Room Air 09/25/24 06:00 Weight last 48 hrs Weight 65.771 kg Weight 65.771 kg Data NPU 09/23/24 17:56 09/23/24 17:56 A&P Assessment and plan (1) Suicidal ideation: (2) Amphetamine abuse: (3) Psychosis: (4) Suicidal ideation: (5) Major depressive disorder, recurrent: (6) Cannabis use disorder: Plan This is a 24 year old white man with a history of impulsivity, irritability and behavioral issues and genetic loading for mental issues and possible addiction issues, unknown from past inpatient stay who presents reporting that he discontinued the medication and has fallen back into the same scenario that led to his last hospitalization. 1. Restarted prozac 20 mg poq am and Abilify at 10 mg poq am. 2. Encourage individual, group and milieu therapy 3. Continue q-15 minute check for safety 4. Recommend sober living treatment at the highest level of care to which the patient is willing to commit. Involuntary Hold Information 2 96 Hour Hold: 96 Hour Involuntary Admission: Yes 96 Hour Hold Ending Date: 10/02/24 96 Hour Hold Ending Time: 00:01 Other Hold: Hold End Date: 10/02/24 Attestations NPU 2 Medical Necessity Statement*: Inpatient hospitalization is medically necessary and the clinically appropriate intervention at this time. We will monitor medications and make changes as indicated. Likely length of stay is 2-4 days. Coding Level of Care Code Acute Code for Chg Fwd Diagnoses Suicidal ideation R45.851 Amphetamine abuse F15.10 Psychosis F29 Major depressive disorder, recurrent F33.9 Cannabis use disorder F12.90
[2024-09-25 22:00] VITALS: BP 117/70; PULSE 74; RESP 17; TEMP 36.8; O2SAT 99
[2024-09-26 06:00] VITALS: BP 114/73; PULSE 80; RESP 17; TEMP 36.7; O2SAT 98
[2024-09-26] MEDS: fluoxetine 20 mg Capsule PO (08:18)
[2024-09-26] MEDS: ARIPiprazole 10 mg Tablet PO (08:18)
[2024-09-26] MEDS: nicotine 4 mg lozenge MUCOUS MEM ×5 (08:18→19:41)
[2024-09-26 14:00] VITALS: BP 136/85; PULSE 87; RESP 14; TEMP 36.7; O2SAT 96
--- NOTE | 2024-09-26 18:01 | P.NPUPN_ITS ---
Subjective NPU 2 Subjective: Patient presented today reporting that he is starting to feel better and optimistic about things moving forward. He has worked with the social work team for appropriate outpatient services and appointments. Discussed a plan for discharge in the next 48 hours but likely tomorrow. He reports feeling that he is ready to go and that the medications are working well and he denied any side effects. Mental Status Exam 2 MSE Comments: This is a slender white male in hospital scrubs with limited grooming and eye contact. No abnormal movements except for psychomotor retardation. Cooperative with exam in mild distress. Speech was decreased rate and volume. Mood described as getting better, affect is congruent. Thought process, mostly organized. Thought content: patient endorses suicidal ideation but denies homicidal ideation, no delusions reported or noted and denies any auditory or visual hallucinations. Attention and concentration are intact and memory appeared somewhat reliable but none were formally tested. He is alert and oriented times three. Insight and judgment are fair. Impulse control is impaired. Vitals/I&O/Wt Last Vital Signs Temp 98.1 F 09/26/24 14:00 Pulse 87 09/26/24 14:00 Resp 14 09/26/24 14:00 BP 136/85 09/26/24 14:00 Pulse Ox 96 09/26/24 14:00 O2 Del Method Room Air 09/26/24 14:00 09/26/24 09/26/24 09/26/24 06:59 14:59 22:59 Intake Total 940 / 940 Balance 940 / 940 Data NPU 09/23/24 17:56 09/23/24 17:56 A&P Assessment and plan (1) Suicidal ideation: (2) Amphetamine abuse: (3) Psychosis: (4) Suicidal ideation: (5) Major depressive disorder, recurrent: (6) Cannabis use disorder: Plan This is a 24 year old white man with a history of impulsivity, irritability and behavioral issues and genetic loading for mental issues and possible addiction issues, unknown from past inpatient stay who presents reporting that he discontinued the medication and has fallen back into the same scenario that led to his last hospitalization. 1. Restarted prozac 20 mg poq am and Abilify at 10 mg poq am. 2. Encourage individual, group and milieu therapy 3. Continue q-15 minute check for safety 4. Recommend sober living treatment at the highest level of care to which the patient is willing to commit. Involuntary Hold Information 2 96 Hour Hold: 96 Hour Involuntary Admission: Yes 96 Hour Hold Ending Date: 10/02/24 96 Hour Hold Ending Time: 00:01 Other Hold: Hold End Date: 10/02/24 Attestations NPU 2 Medical Necessity Statement*: Inpatient hospitalization is medically necessary and the clinically appropriate intervention at this time. We will monitor medications and make changes as indicated. Likely length of stay is 1-3 days. Coding Level of Care Code Acute Code for Chg Fwd Diagnoses Suicidal ideation R45.851 Amphetamine abuse F15.10 Psychosis F29 Major depressive disorder, recurrent F33.9 Cannabis use disorder F12.90
[2024-09-26 20:03] VITALS: BP 153/81; PULSE 80; RESP 16; TEMP 37; O2SAT 98
[2024-09-27 06:00] VITALS: BP 120/62; PULSE 66; RESP 18; TEMP 36.9; O2SAT 99
--- NOTE | 2024-09-27 08:15 | W.PM.NPUDCS ---
Diagnoses at Discharge Discharge Diagnosis (1) Suicidal ideation: Status: Resolved (2) Amphetamine abuse: Status: Acute (3) Psychosis: Status: Resolved (4) Major depressive disorder, recurrent: Status: Acute (5) Cannabis use disorder: Status: Acute Reason for Visit Reason for Visit: mhe Brief History: History of Present Illness Tien Jain Jr is a 24 year old male who presented to the emergency department with the following report: Chief Complaint: Psychiatric Symptoms Stated Complaint: mhe Time Seen by Provider: 09/23/24 17:46 Source: patient Mode of arrival: ambulatory Limitations: no limitations History of Present Illness: 24-year-old male states has been having suicidal ideations over the last week he states he had thoughts of cutting his neck he does have some superficial scratches to his neck he states he has been on meds and has not been on them. He has no other complaints at this time denies any worse or improving factors. Associated symptoms: Reports suicidal ideation He was admitted to the neuropsychiatric unit for definitive treatment of those issues. He is known to the psychiatric community through mostly his past inpatient services though he has been in the emergency department multiple times. His last discharge was in December 2022 and an excerpt of that discharge summary is included below for history and context and the fact that he denies any substantive changes. He presents today reporting that after his discharge he took the medication until he had no medications left or any refills left but had not gotten himself connected with services to obtain new prescriptions. He reports that the medications were very helpful and that it was a big mistake to allow himself to run out. He denies any significant changes in his life and reports that stressors have led him to having suicidal thoughts again and that he wanted to restart his medications. We discussed the risks, benefits and alternatives of restarting Prozac and Abilify and he understood and agreed to proceed as is documented in his note. Per his 01/06/2023 [facility] inpatient psychiatric discharge summary: Discharge Diagnosis (1) Suicidal ideation: Status: Acute (2) Amphetamine abuse: Status: Acute (3) Psychosis: Status: Acute Reason for Visit Reason for Visit: SI Brief History: History of Present Illness Tien Jain Jr is a 22 year old male The patient was admitted to the neuropsychiatric unit for definitive treatment of those issues. There have been crisis contacts by his mother secondary to what she described as out of control behavior which lead to him being brought to the emergency department. He ultimately agreed once he got to the hospital that his behavior had been out of control and he was willing to be admitted to the neuropsychiatric unit. The patient presents reporting that he has a past history of psychiatric treatment as a juvenile but denies any services since he has turned 18. He came to the hospital secondary to suicidal ideation and stress but he reported that he had been having conflict with his mother and grandmother with whom he lives, which has made things very difficult. He reports that he had been on lots of medications as a child including medication for adhd, depression and mood dysregulation. He had been on Abilify and Prozac at one point and reports they were quite helpful when he took them. He reports he smokes cigarettes, drinks alcohol occasionally, smokes marijuana and denies any other illicit drug use. He has never been to rehab, denies any DUIs or other drug and alcohol related charges. He reports things started in his youth when he had problems with anger and impulsivity and was treated for it. He reports it was probably helpful but was rebellious and did not want to take the medications. He said in recent times he has really struggled with anger and irritability and said when he was taking the Prozac and Abilify those were not as present. He endorses feelings of helplessness, hopelessness, worthlessness, sleep difficulties, passive wish and most recently suicidal thoughts. He reports things have not been as enjoyable and he is frustrated all of the time. It has affect his ability to be consistent with work and his relationships extensively. He reports he probably does have some anxiety as well. Psychiatric History: As above. Substance Abuse History: As above. Family History: He endorses some mental health issues in his family, was unclear about addiction issues and denies any known suicide attempts or completions. Developmental History: He denies any issues with his or , learned to walk and talk and met his developmental milestones on time and denies any need for speech therapy, learning support or emotional support but did have some special education classes. Psychosocial History: He reports his parents were together when he was born and he has an older sister and younger brother who are products of the same union but his father has 3 additional children. He reports his childhood was okay and denies any emotional, physical or sexual abuse. He denies C[employer] involvement. He denies any other traumatic events. He endorses being heterosexual. He has never been , has 3 biological children but struggles to see them due to his relationship with their mother, has never been in the and denies a yazdanism belief system. He works with a bruno who does [employer] but recently things have been more tough. He currently lives in a camper with his mother and grandmother. Legal History: He reports he has been in intermediate multiple times, the longest time of which was 1 month. Medical History: He denies any significant medical issues. Hospital Course Hospital Course He slowly acclimated to the individual, group and milieu therapies. He presented off of medications having ran out of medications and not follow through with follow-up appointments from his last hospitalization and slowly fell into the same situation. He continued to have active cannabis use. We restarted his Prozac and Abilify and he was discharged on 20 mg and 10 mg p.o. daily respectively. He had a positive response to the medications. He worked with the social work team for appropriate aftercare and follow-up appointments. He had significant improvement during his stay and he was able to contract for safety outside of the hospital prior to discharge. During the hospitalization, patient had routine laboratory studies which were within normal limits except for few outliers. Additionally there was a general medical evaluation which was also within normal limits and revealed no new acute processes. At the time of discharge, he did denied psychosis or lethality. Mood and anxiety were well managed. Patient endorsed a plan to avoid all drugs of abuse and follow-up with the aftercare recommendations of the treatment team. Patient was evaluated and deemed to be absent credible lethality, and had achieved the maximum benefit from an inpatient hospitalization, so was discharged. Involuntary Hold Information 96 Hour Hold: 96 Hour Involuntary Admission: Yes 96 Hour Hold Ending Date: 10/02/24 96 Hour Hold Ending Time: 00:01 Other Hold: Hold End Date: 10/02/24 Mental Status Exam MSE Comments: This is a slender white male in hospital scrubs with limited grooming and eye contact. No abnormal movements except for psychomotor retardation. Cooperative with exam in mild distress. Speech was decreased rate and volume. Mood described as getting better, affect is congruent. Thought process, mostly organized. Thought content: patient endorses suicidal ideation but denies homicidal ideation, no delusions reported or noted and denies any auditory or visual hallucinations. Attention and concentration are intact and memory appeared somewhat reliable but none were formally tested. He is alert and oriented times three. Insight and judgment are fair. Impulse control is impaired. Discharge Data Studies Completed and Pending: Laboratory Results WBC 12.55 10^3/uL (3. 29-11.43) H 09/23/24 17:56 RBC 5.20 10^6/uL (3.8 5-5.65) 09/23/24 17:56 Hgb 15.50 g/dL (11.27 -16.99) 09/23/24 17:56 Hct 44.7 % (37-53) 09/23/24 17:56 MCV 86.0 fl (82-101) 09/23/24 17:56 MCH 29.8 pg (27-33) 09/23/24 17:56 MCHC 34.7 g/dL (30-55) 09/23/24 17:56 RDW 12.6 % (12.1-15.1 ) 09/23/24 17:56 Plt Count 292 10^3/cmm (157 -399) 09/23/24 17:56 MPV 11.3 fL (7.4-10.4 ) H 09/23/24 17:56 Neut % (Auto) 82.3 % 09/23/24 17:56 Lymph % (Auto) 11.3 % 09/23/24 17:56 Forrest % (Auto) 5.6 % 09/23/24 17:56 Eos % (Auto) 0.2 % 09/23/24 17:56 Baso % (Auto) 0.3 % 09/23/24 17:56 Neut # (Auto) 10.33 10^3/uL (1. 8-7.7) H 09/23/24 17:56 Lymph # (Auto) 1.4 10^3/uL (0.8- 4.8) 09/23/24 17:56 Forrest # (Auto) 0.7 10^3/uL (0.2- 0.9) 09/23/24 17:56 Eos # (Auto) 0.0 10^3/uL (0.0- 0.8) 09/23/24 17:56 Baso # (Auto) 0.0 10^3/uL (0.0- 0.1) 09/23/24 17:56 Nucleated RBC % (a uto) 0 % 09/23/24 17:56 Nucleated RBCs # 0.0 /100WBC 09/23/24 17:56 Sodium 140 mmol/L (136-1 45) 09/23/24 17:56 Potassium 3.8 mmol/L (3.5-5 .1) 09/23/24 17:56 Chloride 102 mmol/L (98-10 7) 09/23/24 17:56 Carbon Dioxide 29 mmol/L (22-29) 09/23/24 17:56 Anion Gap 12.8 (5-19) 09/23/24 17:56 BUN 8 mg/dL (6-20) 09/23/24 17:56 Creatinine 0.8 mg/dL (0.7-1. 2) 09/23/24 17:56 GFR Calculation 118.8 mL/min (90- 130) 09/23/24 17:56 Glucose 90 mg/dL (65-115) 09/23/24 17:56 Calculated Osmolal ity 288 mOsm/kg (285- 295) 09/23/24 17:56 Calcium 9.3 mg/dL (8.5-10 .5) 09/23/24 17:56 Total Bilirubin 0.5 mg/dL (0.15-1 .2) 09/23/24 17:56 AST 28 U/L (0-40) 09/23/24 17:56 ALT 14 U/L (0-41) 09/23/24 17:56 Alkaline Phosphata se 94 U/L (40-130) 09/23/24 17:56 Total Protein 7.5 g/dL (6.6-8.7 ) 09/23/24 17:56 Albumin 4.6 g/dL (3.5-5.2 ) 09/23/24 17:56 Globulin 2.9 g/dL (1.3-4.6 ) 09/23/24 17:56 Salicylates 0.4 mg/dL (3-10) L 09/23/24 17:56 Urine Opiates Scre en Negative ng/mL (N egative) 09/24/24 08:30 Acetaminophen < 5.0 ug/mL (10-3 0) L 09/23/24 17:56 Ur Barbiturates Sc reen Negative ng/mL (N egative) 09/24/24 08:30 Ur Phencyclidine S crn Negative ng/mL (N egative) 09/24/24 08:30 Ur Amphetamines Sc reen Negative ng/mL (N egative) 09/24/24 08:30 U Benzodiazepines Scrn Negative ng/mL (N egative) 09/24/24 08:30 Urine Cocaine Scre en Negative ng/mL (N egative) 09/24/24 08:30 U Marijuana (THC) Screen Positive ng/mL (N egative) H 09/24/24 08:30 Ethyl Alcohol < 10 mg/dL (0-10) 09/23/24 17:56 Vitals: Last Vital Signs Temp 98.4 F 09/27/24 06:00 Pulse 66 09/27/24 06:00 Resp 18 09/27/24 06:00 BP 120/62 09/27/24 06:00 Pulse Ox 99 09/27/24 06:00 O2 Del Method Room Air 09/27/24 06:00 Discharge Plan Discharge Patient Disposition: Home Condition: Stable Prescriptions: New fluoxetine 20 mg Capsule 20 mg PO DAILY 30 Days Qty: 30 1RF aripiprazole 10 mg Tablet 10 mg PO DAILY 30 Days Qty: 30 1RF Continued budesonide-formoterol [Symbicort] 80-4.5 mcg/actuation HFA aerosol inhaler 1 inh inhalation BID Qty: 10.2 2RF albuterol sulfate [ProAir HFA] 90 mcg/actuation HFA aerosol inhaler 1 - 2 inh inhalation Q6H PRN (Reason: shortness of breath or wheezing) Qty: 8.5 2RF Discharge Orders: Discharge Order (Routine); Ordered 09/27/24 Ordered By: Javi Alston Referrals: [facility] [Outside] - 10/02/24 1:30 pm (Initial appointment for 10/02/24 With Kelsey at 1:30 pm check in ) Kelin Ortez FNP-C [Primary Care Provider] - Discharge Diet: Regular Discharge Activity: Resume usual activity Patient Instructions: Opioid Safety Discharge Attestations NPU Time Spent in Discharge Care*: less than 30 min Specific Discharge Activities: Specific discharge activities: educating patient, discussing with manager rn case/social workers/dc planners, documenting/other paperwork and evaluating patient/reviewing data Coding Level of Care Code Acute Code for Chg Fwd Diagnoses Suicidal ideation R45.851 Amphetamine abuse F15.10 Psychosis F29 Major depressive disorder, recurrent F33.9 Cannabis use disorder F12.90
[2024-09-27] MEDS: ARIPiprazole 10 mg Tablet PO (08:20)
[2024-09-27] MEDS: nicotine 4 mg lozenge MUCOUS MEM (08:20)
[2024-09-27] MEDS: fluoxetine 20 mg Capsule PO (08:20)
[2024-09-27 08:22] VITALS: BP 120/62; PULSE 66; RESP 18; TEMP 5445.5; TEMP 9834; O2SAT 99
== END 2024-09-27 09:54 | disposition home or self-care (01) | DRG 885 ==
LOC: ER 19:46 → NP 20:21
PROVIDERS: Admitting Provider Psychiatry & Neurology Psychiatry; Emergency Provider Emergency Medicine; PCP Nurse Practitioner Family; Visit Provider Psychiatry & Neurology Psychiatry
DX: F33.9 Major depressive disorder, recurrent, unspecified (principal); R45.851 Suicidal ideations; J45.909 Unspecified asthma, uncomplicated; F17.200 Nicotine dependence, unspecified, uncomplicated; Z79.51 Long term (current) use of inhaled steroids; F12.10 Cannabis abuse, uncomplicated; F15.10 Other stimulant abuse, uncomplicated; Z91.148 Patient's other noncompliance with medication regimen for other reason; Z91.198 Patient's noncompliance with other medical treatment and regimen for other reason
CPT/HCPCS: 36415; 80053; 80306; 80307; 85025; 97150; 97165; 99285

== ENCOUNTER 2024-12-06 12:20 | Inpatient (IN) | payer BC, MEDICAID, SELFPAY ==
[2024-12-06 12:22] VITALS: BP 136/67; PULSE 74; RESP 17; TEMP 36.7; O2SAT 98; BMI 25.7
--- NOTE | 2024-12-06 12:31 | W.ED.PSYCHS ---
HPI - Psych General: Chief Complaint: Psychiatric Symptoms Stated Complaint: SI Time Seen by Provider: 12/06/24 12:23 Source: patient and police Limitations: no limitations History of Present Illness: 24-year-old male presents with police on a 96-hour hold states they were called out states that he has been trying to jump off a bridge and had a knife to his throat as well. He has had previous admissions he states he is suicidal at this time. He denies any worse improved factors Associated symptoms: Reports depression and suicidal ideation Related Data Home Medications ?Medication ?Instructions ?Recorded ?Confirmed albuterol sulfate 90 mcg/actuation 1 - 2 puff inhalation Q6H PRN 12/06/24 12/06/24 aerosol inhaler (Ventolin HFA) Shortness Of Breath aripiprazole 10 mg tablet 10 mg PO QAM 12/06/24 12/06/24 fluoxetine 20 mg capsule 20 mg PO QAM 12/06/24 12/06/24 Previous Rx's ?Medication ?Instructions ?Recorded budesonide-formoterol HFA 80 1 inh inhalation BID #10.2 grams 11/03/23 mcg-4.5 mcg/actuation aerosol inhaler (Symbicort) Allergies Allergy/AdvReac Type Severity Reaction Status Date / Time No Known Allergies Allergy Verified 11/03/24 13:34 Review of Systems Const: Denies: fever(s), chills, body aches or change in appetite ENMT: Denies: throat pain or dental pain Card: Denies: chest pain Resp: Denies: dyspnea GI: Denies: abdominal pain, nausea, vomiting or diarrhea Musc: Denies: neck pain or back pain Skin/Breast: Denies: rash Psych: Reports: depression and suicidal ideation [facility] PFSH: Medical History (Updated 12/06/24 @ 13:35 by Miri Hung MD) Methamphetamine dependence, episodic Nicotine dependence, cigarettes, uncomplicated Marijuana dependence Major depressive disorder, recurrent episode, moderate with anxious distress Psychiatric care Cough Asthma Otitis media of both ears Right bundle branch block Social History Smoking and tobacco/nicotine status: heavy tobacco/nicotine user Quit status (tobacco/nicotine): not considering quitting Second hand smoke exposure: Yes Alcohol intake: never Substance/Drug Use: current Adopted: No Caregiver/support person: Yes Lives independently: Yes Physical Exam Const: COMMON NORMALS: no acute distress, patient oriented x3 and healthy appearing HENMT: COMMON NORMALS: normocephalic and atraumatic HEAD & SCALP: normocephalic and atraumatic Neck/C-Spine: COMMON NORMALS: full ROM and supple Chest: COMMONS NORMALS: normal inspection of the chest Resp: COMMON NORMALS: normal respiratory effort Cardio: COMMON NORMALS: regular rate RATE: regular rate Extremity: COMMON NORMALS: normal to inspection and full ROM Neuro: COMMON NORMALS: patient oriented x3, moves all extremities and no focal motor deficits Psych: COMMON NORMALS: mental status grossly normal, Normal thought process present and cooperative MOOD & AFFECT: Yes depressed mood THOUGHT PROCESS: Normal thought process present THOUGHT CONTENT: Yes Suicidality present Skin: COMMON NORMALS: no rashes or lesions noted and no wounds GENERAL SKIN EXAM: no rashes or lesions noted Course Vital Signs: Vital signs: Vital Signs Temperature 98.1 F 12/06/24 12:22 Pulse Rate 74 12/06/24 12:22 Respiratory Rate 17 12/06/24 12:22 Blood Pressure 136/67 12/06/24 12:22 Pulse Oximetry 98 12/06/24 12:22 Oxygen Delivery Me thod Room Air 12/06/24 12:22 MDM - Psych Medical Decision Making Patient presents for suicidal ideations he was placed under 96-hour hold by police he is medically clear spoke to psychiatrist will admit Medical Records I reviewed the patient's medical records. Lab Data I reviewed the patient's lab results. 12/06/24 13:06 12/06/24 13:06 Laboratory Results WBC 9.75 10^3/uL (3.29-11.43) 12/06/24 13:06 RBC 5.31 10^6/uL (3.85-5.65) 12/06/24 13:06 Hgb 16.10 g/dL (11.27-16.99) 12/06/24 13:06 Hct 46.4 % (37-53) 12/06/24 13:06 MCV 87.4 fl (82-101) 12/06/24 13:06 MCH 30.3 pg (27-33) 12/06/24 13:06 MCHC 34.7 g/dL (30-55) 12/06/24 13:06 RDW 12.5 % (12.1-15.1) 12/06/24 13:06 Plt Count 283 10^3/cmm (157-399) 12/06/24 13:06 MPV 11.0 fL (7.4-10.4) H 12/06/24 13:06 Neut % (Auto) 83.0 % 12/06/24 13:06 Lymph % (Auto) 11.4 % 12/06/24 13:06 Falls % (Auto) 4.2 % 12/06/24 13:06 Eos % (Auto) 0.7 % 12/06/24 13:06 Baso % (Auto) 0.4 % 12/06/24 13:06 Neut # (Auto) 8.09 10^3/uL (1.8-7.7) H 12/06/24 13:06 Lymph # (Auto) 1.1 10^3/uL (0.8-4.8) 12/06/24 13:06 Falls # (Auto) 0.4 10^3/uL (0.2-0.9) 12/06/24 13:06 Eos # (Auto) 0.1 10^3/uL (0.0-0.8) 12/06/24 13:06 Baso # (Auto) 0.0 10^3/uL (0.0-0.1) 12/06/24 13:06 Nucleated RBC % (auto) 0 % 12/06/24 13:06 Nucleated RBCs # 0.0 /100WBC 12/06/24 13:06 Urine Opiates Screen Negative ng/mL (Negative) 12/06/24 12:29 Ur Barbiturates Screen Negative ng/mL (Negative) 12/06/24 12:29 Ur Phencyclidine Scrn Negative ng/mL (Negative) 12/06/24 12:29 Ur Amphetamines Screen Negative ng/mL (Negative) 12/06/24 12:29 U Benzodiazepines Scrn Negative ng/mL (Negative) 12/06/24 12:29 Urine Cocaine Screen Negative ng/mL (Negative) 12/06/24 12:29 U Marijuana (THC) Screen Positive ng/mL (Negative) H 12/06/24 12:29 No radiology studies performed this visit Discharge Plan Discharge Patient Disposition: Admitted As Inpatient Clinical Impression: Suicidal ideation Condition: Stable Prescriptions: No Action budesonide-formoterol [Symbicort] 80-4.5 mcg/actuation HFA aerosol inhaler 1 inh inhalation BID Qty: 10.2 2RF albuterol sulfate [Ventolin HFA] 90 mcg/actuation HFA aerosol inhaler 1 - 2 puff INHALATION Q6H PRN (Reason: Shortness Of Breath) fluoxetine 20 mg capsule 20 mg PO QAM aripiprazole 10 mg tablet 10 mg PO QAM Referrals: Kelin Ortez FNP-C [Primary Care Provider] - Print Language: Kuwaiti Coding Level of Care Code ED Home Management Supervisor for Jamari Lemon
[2024-12-06 12:57] LABS: Amphetamines Screen Urine Negative (Negative); Barbiturates Screen Urine Negative (Negative); Benzodiazepines Screen Urine Negative (Negative); Cocaine Screen Urine Negative (Negative); Opiate Screen Urine Negative (Negative); PCP Screen Urine Negative (Negative); THC Screen Urine Positive (Negative)
[2024-12-06 13:18] LABS: Basophils % 0.4 %; Eosinophils # 0.1 10^3/uL (0.0-0.8); Eosinophils % 0.7 %; Hematocrit 46.4 % (37-53); Lymphocytes # 1.1 10^3/uL (0.8-4.8); Lymphocytes % 11.4 %; Mean Corpuscular HGB Conc 34.7 g/dL (30-55); Mean Corpuscular Hemoglobin 30.3 pg (27-33); Mean Corpuscular Volume 87.4 fl (82-101); Monocytes # 0.4 10^3/uL (0.2-0.9); Monocytes % 4.2 %; Neutrophils # 8.09 10^3/uL (1.8-7.7); Nucleated Red Blood Cells % 0 %; Platelet Count 283 10^3/cmm (157-399); Red Blood Count 5.31 10^6/uL (3.85-5.65); Red Cell Distribution Width 12.5 % (12.1-15.1); White Blood Count 9.75 10^3/uL (3.29-11.43)
[2024-12-06 13:37] LABS: Alanine Aminotransferase 27 U/L (0-41); Albumin Level 4.5 g/dL (3.5-5.2); Alkaline Phosphatase 89 U/L (40-130); Anion Gap 15.2 (5-19); Aspartate Amino Transferase 27 U/L (0-40); Blood Urea Nitrogen 11 mg/dL (6-20); Calcium 9.3 mg/dL (8.5-10.5); Carbon Dioxide 22 mmol/L (22-29); Chloride 105 mmol/L (98-107); Creatinine Clr Calc Pharmacy 124.2625; Globulin 2.9 g/dL (1.3-4.6); Glomerular Filtration Rate 103.7 mL/min (90-130); Glucose 82 mg/dL (65-115); Osmolality Calculated 284 mOsm/kg (285-295); Potassium 4.2 mmol/L (3.5-5.1); Sodium 138 mmol/L (136-145); Total Bilirubin 0.8 mg/dL (0.15-1.2); Total Protein 7.4 g/dL (6.6-8.7)
[2024-12-06 13:52] LABS: Acetaminophen < 5.0 ug/mL (10-30); Alcohol Level < 10 mg/dL (0-10); Salicylate < 0.3 mg/dL (3-10)
[2024-12-06 15:28] VITALS: BP 118/70; PULSE 76; O2SAT 99
[2024-12-06 15:36] VITALS: BP 126/65; PULSE 72; RESP 18; TEMP 36.9; O2SAT 97
--- NOTE | 2024-12-06 16:19 | PC.NURSE ---
Patient states he was put in assisted last night due to a fight he had with his girlfriend. He says they broke up last night and began arguing and the police were called. Patient says he made a comment that he wanted to kill himself, but didn't mean it and was just frustrated in the moment. Patient says he currently lives with his parents and that they are his support system. He states he currently goes to [facility] in [place] and that his last hospitalization in the psych unit was here 2 months ago. Denies avh. Patient denies any drug or alcohol abuse. He does say he uses a THC pen, sometimes nightly. Calm and cooperative with nursing assessment. Did appear tearful when speaking about no longer being with his girlfriend.
[2024-12-06] MEDS: nicotine 4 mg lozenge MUCOUS MEM (16:35)
[2024-12-06 20:05] VITALS: BP 104/58; PULSE 73; RESP 17; TEMP 36.9; O2SAT 97
[2024-12-07 06:00] VITALS: BP 115/71; PULSE 71; RESP 17; TEMP 36.9; O2SAT 98
[2024-12-07] MEDS: hyDROXYzine 25 mg Capsule 50 MG PO (08:10)
[2024-12-07] MEDS: fluoxetine 20 mg Capsule PO (08:10)
[2024-12-07] MEDS: ARIPiprazole 10 mg Tablet PO (08:10)
[2024-12-07] MEDS: nicotine 4 mg lozenge MUCOUS MEM ×4 (08:10→17:42)
[2024-12-07 14:00] VITALS: BP 101/62; PULSE 60; RESP 18; TEMP 36.7; O2SAT 99
--- NOTE | 2024-12-07 14:03 | W.PM.NPUH&PS ---
Providers/Chief Complaint Admitting Physician: Lalito Pino MD Primary Care Provider: KLEVER Lauren Chief Complaint: SI HPI NPU History of Present Illness Tien Jain Jr is a 24 year old male who presented to the emergency department after he was accompanied by the police and picked up from a bridge after he had a knife to his throat and had been threatening to jump off of this bridge. Patient was admitted involuntarily to the neuropsychiatric unit for further evaluation and treatment. The patient had reported recent inpatient psychiatric hospitalization 2 months ago here on the neuropsychiatric unit. He had reported that he continues to struggle with depression and states that it often is triggered by nothing at all. He had reported that he has had problems with depression since the age of 12. He reports that he has been clean off of methamphetamine for more than 2 years but reports that he continues to use marijuana daily to help with managing his anxiety. The patient reports difficulties falling asleep. He reports frequent awakenings at night. He reports no change in overall energy. He reports low motivation and reports that he has been crying more frequently with complaints of increased anxiety. He had reported a past history of self-injurious behavior including cutting himself. He reports that he has been compliant with his current medication regimen but stated that he felt that he needed his medications adjusted at this time. He had reported having struggles with managing chronic worry. He had reported a recent break-up with a girlfriend just 3 days prior after having a relationship with her for approximately 1 year. Inpatient psychiatric history: He reports 3 previous psychiatric hospitalizations with his last hospitalization having occurred in September 2024 on the neuropsychiatric unit. Outpatient psychiatric history: He is currently receiving outpatient medication management through the neuropsychiatric unit and previously had received treatment for depression during adolescence. Medical history: Asthma, otitis media, Surgical history: None reported Allergies: No known drug allergies Current medications: Abilify 10 mg daily, Prozac 20 mg daily, albuterol inhaler, Symbicort Substance abuse history: He reports smoking 2 packs of cigarettes daily. He reports marijuana use daily for several years. He had reported previous use of methamphetamines but reports last using in 2022. He denies any use of opiates. Denies any history of LSD use. He denies any history of intravenous drug use. He reported no history of substance abuse treatment either on an outpatient or inpatient basis. He denies any current alcohol use. Legal history: He has been on probation previously for driving with a suspended license. history: None Family psychiatric history: Depression in father reported Social history: Patient had reported history of learning disorder and reports receiving special occasions services. He was born in [place] to a single mother and has 3 older brothers and 1 younger sister. He reports that he has never been but has 2 daughters that live with their mother ages 5 and 7 respectively. He had been living with his girlfriend of 1 year and her 4 step children. He had reported that he now is living with his mother and stepfather and his grandmother's home in [place]. He had dropped out of school in the ninth grade and did not obtain a GED. He had reported engaged in other physical activities including building decks and house remodeling along with removing trees from property. He is currently not on disability. Excerpt from NPU discharge summary from 09/27/24 Discharge Diagnosis (1) Suicidal ideation: Status: Resolved (2) Amphetamine abuse: Status: Acute (3) Psychosis: Status: Resolved (4) Major depressive disorder, recurrent: Status: Acute (5) Cannabis use disorder: Status: Acute Reason for Visit e Brief History: History of Present Illness Tien Jain Jr is a 24 year old male who presented to the emergency department with the following report: Chief Complaint: Psychiatric Symptoms Stated Complaint: mhe Time Seen by Provider: 09/23/24 17:46 Source: patient Mode of arrival: ambulatory Limitations: no limitations History of Present Illness: 24-year-old male states has been having suicidal ideations over the last week he states he had thoughts of cutting his neck he does have some superficial scratches to his neck he states he has been on meds and has not been on them. He has no other complaints at this time denies any worse or improving factors. Associated symptoms: Reports suicidal ideation He was admitted to the neuropsychiatric unit for definitive treatment of those issues. He is known to the psychiatric community through mostly his past inpatient services though he has been in the emergency department multiple times. His last discharge was in December 2022 and an excerpt of that discharge summary is included below for history and context and the fact that he denies any substantive changes. He presents today reporting that after his discharge he took the medication until he had no medications left or any refills left but had not gotten himself connected with services to obtain new prescriptions. He reports that the medications were very helpful and that it was a big mistake to allow himself to run out. He denies any significant changes in his life and reports that stressors have led him to having suicidal thoughts again and that he wanted to restart his medications. We discussed the risks, benefits and alternatives of restarting Prozac and Abilify and he understood and agreed to proceed as is documented in his note. Per his 01/06/2023 [facility] inpatient psychiatric discharge summary: Discharge Diagnosis (1) Suicidal ideation: Status: Acute (2) Amphetamine abuse: Status: Acute (3) Psychosis: Status: Acute Reason for Visit Reason for Visit: SI Brief History: History of Present Illness Tien Jain Jr is a 22 year old male The patient was admitted to the neuropsychiatric unit for definitive treatment of those issues. There have been crisis contacts by his mother secondary to what she described as out of control behavior which lead to him being brought to the emergency department. He ultimately agreed once he got to the hospital that his behavior had been out of control and he was willing to be admitted to the neuropsychiatric unit. The patient presents reporting that he has a past history of psychiatric treatment as a juvenile but denies any services since he has turned 18. He came to the hospital secondary to suicidal ideation and stress but he reported that he had been having conflict with his mother and grandmother with whom he lives, which has made things very difficult. He reports that he had been on lots of medications as a child including medication for adhd, depression and mood dysregulation. He had been on Abilify and Prozac at one point and reports they were quite helpful when he took them. He reports he smokes cigarettes, drinks alcohol occasionally, smokes marijuana and denies any other illicit drug use. He has never been to rehab, denies any DUIs or other drug and alcohol related charges. He reports things started in his youth when he had problems with anger and impulsivity and was treated for it. He reports it was probably helpful but was rebellious and did not want to take the medications. He said in recent times he has really struggled with anger and irritability and said when he was taking the Prozac and Abilify those were not as present. He endorses feelings of helplessness, hopelessness, worthlessness, sleep difficulties, passive wish and most recently suicidal thoughts. He reports things have not been as enjoyable and he is frustrated all of the time. It has affect his ability to be consistent with work and his relationships extensively. He reports he probably does have some anxiety as well. Psychiatric History: As above. Substance Abuse History: As above. Family History: He endorses some mental health issues in his family, was unclear about addiction issues and denies any known suicide attempts or completions. Developmental History: He denies any issues with his or , learned to walk and talk and met his developmental milestones on time and denies any need for speech therapy, learning support or emotional support but did have some special education classes. Psychosocial History: He reports his parents were together when he was born and he has an older sister and younger brother who are products of the same union but his father has 3 additional children. He reports his childhood was okay and denies any emotional, physical or sexual abuse. He denies [employer] involvement. He denies any other traumatic events. He endorses being heterosexual. He has never been , has 3 biological children but struggles to see them due to his relationship with their mother, has never been in the and denies a restorationism belief system. 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 He currently lives in a camper with his mother and grandmother. Legal History: He reports he has been in detention multiple times, the longest time of which was 1 month. Medical History: He denies any significant medical issues. Hospital Course Hospital Course He slowly acclimated to the individual, group and milieu therapies. He presented off of medications having ran out of medications and not follow through with follow-up appointments from his last hospitalization and slowly fell into the same situation. He continued to have active cannabis use. We restarted his Prozac and Abilify and he was discharged on 20 mg and 10 mg p.o. daily respectively. He had a positive response to the medications. He worked with the social work team for appropriate aftercare and follow-up appointments. He had significant improvement during his stay and he was able to contract for safety outside of the hospital prior to discharge. During the hospitalization, patient had routine laboratory studies which were within normal limits except for few outliers. Additionally there was a general medical evaluation which was also within normal limits and revealed no new acute processes. At the time of discharge, he did denied psychosis or lethality. Mood and anxiety were well managed. Patient endorsed a plan to avoid all drugs of abuse and follow-up with the aftercare recommendations of the treatment team. Patient was evaluated and deemed to be absent credible lethality, and had achieved the maximum benefit from an inpatient hospitalization, so was discharged. Meds NPU Home Medications ?Medication ?Instructions ?Recorded ?Confirmed ?Last Taken ?Type budesonide-formoterol HFA 80 1 inh inhalation BID #10.2 grams 11/03/23 12/06/24 12/05/24 Rx mcg-4.5 mcg/actuation aerosol inhaler (Symbicort) albuterol sulfate 90 mcg/actuation 1 - 2 puff inhalation Q6H PRN 12/06/24 12/06/24 Unknown History aerosol inhaler (Ventolin HFA) Shortness Of Breath aripiprazole 10 mg tablet 10 mg PO DAILY 12/06/24 12/06/24 Unknown History aripiprazole 10 mg tablet 10 mg PO QAM 12/06/24 12/06/24 12/05/24 History fluoxetine 20 mg capsule 20 mg PO QAM 12/06/24 12/06/24 12/05/24 History Allergies Allergy/AdvReac Type Severity Reaction Status Date / Time No Known Allergies Allergy Verified 11/03/24 13:34 PFSH NPU PFSH: Medical History (Updated 12/06/24 @ 13:35 by Miri Hung MD) Methamphetamine dependence, episodic Nicotine dependence, cigarettes, uncomplicated Marijuana dependence Major depressive disorder, recurrent episode, moderate with anxious distress Psychiatric care Cough Asthma Otitis media of both ears Right bundle branch block Social History Smoking and tobacco/nicotine status: heavy tobacco/nicotine user Quit status (tobacco/nicotine): not considering quitting Second hand smoke exposure: Yes Alcohol intake: never Substance/Drug Use: current Adopted: No Caregiver/support person: Yes Lives independently: Yes Mental Status Exam MSE Comments: This is a slender white male in hospital scrubs with limited grooming and eye contact. No abnormal involuntary motor movements except for psychomotor retardation. He was pleasant and cooperative with exam in mild to moderate distress. Speech was decreased in rate and normal in volume. Mood described as depressed, affect is mood congruent and restricted. Thought process was linear and mostly organized. Thought content: patient endorses suicidal ideation with plan to jump off bridge but denies homicidal ideation. No delusions reported or noted and denies any auditory or visual hallucinations. Attention and concentration are intact and memory appeared somewhat reliable but none were formally tested. He is alert and oriented times three. Insight is poor and judgment is poor. Impulse control is impaired. Vitals/I&O/Wt Last Vital Signs Temp 98.5 F 12/07/24 06:00 Pulse 71 12/07/24 06:00 Resp 17 12/07/24 06:00 BP 115/71 12/07/24 06:00 Pulse Ox 98 12/07/24 06:00 O2 Del Method Room Air 12/07/24 06:00 Weight last 48 hrs Weight 74.389 kg Data NPU 12/06/24 13:06 12/06/24 13:06 A&P Assessment and plan (1) Major depressive disorder, recurrent: (2) Suicidal ideation: (3) Suicidal ideation: (4) Cannabis use disorder: Plan This is a 24 year old white man with a history of impulsivity, irritability and behavioral issues and genetic loading for mental issues and possible addiction issues endorsing depression and suicidal ideation presenting involuntarily. 1. Increase prozac to 30mg daily and restart abilify 10mg daily. 2. Encourage individual, group and milieu therapy 3. Continue q-15 minute check for safety 4. Recommend sober living treatment at the highest level of care to which the patient is willing to commit. 5. Will attempt to gather collateral information. PDMP PDMP Reviewed: Not Reviewed Involuntary Hold Information Hold Status: Legal Status: 96 Hour Hold Date/Time Hold Expires: 12/12/2024@1223 96 Hour Hold: 96 Hour Involuntary Admission: Yes Other Hold: Hold End Date: 10/02/24 Attestations NPU Medical Necessity Statement*: Inpatient hospitalization is medically necessary and the clinically appropriate intervention at this time. We will monitor medications and make changes as indicated. Patient will be in the hospital for over two midnights. The patient's likely length of stay is three to five days. Coding Level of Care Code Acute Code for Chg Fwd Diagnoses Major depressive disorder, recurrent F33.9 Suicidal ideation R45.851 Cannabis use disorder F12.90
[2024-12-07 20:11] VITALS: BP 112/64; PULSE 79; RESP 18; TEMP 36.3
[2024-12-08 06:00] VITALS: BP 103/66; PULSE 70; RESP 16; TEMP 36.7; O2SAT 98
[2024-12-08] MEDS: ARIPiprazole 10 mg Tablet PO (08:32)
[2024-12-08] MEDS: fluoxetine 20 mg Capsule PO (08:32)
[2024-12-08] MEDS: nicotine 4 mg lozenge MUCOUS MEM ×2 (08:36→13:07)
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
[2024-12-08 13:30] VITALS: BP 129/79; PULSE 83; RESP 16; TEMP 37.1; O2SAT 100
== END 2024-12-08 15:09 | disposition home or self-care (01) | DRG 885 ==
LOC: ER 13:35 → NP 14:19
PROVIDERS: Admitting Provider Psychiatry & Neurology Psychiatry; Emergency Provider Emergency Medicine; PCP Nurse Practitioner Family; Visit Provider Psychiatry & Neurology Psychiatry
DX: F33.1 Major depressive disorder, recurrent, moderate (principal); R45.851 Suicidal ideations; F15.21 Other stimulant dependence, in remission; F12.20 Cannabis dependence, uncomplicated; F17.210 Nicotine dependence, cigarettes, uncomplicated; I45.10 Unspecified right bundle-branch block
CPT/HCPCS: 36415; 80053; 80306; 80307; 85025; 97150; 97165; 99285; J9999

== ENCOUNTER 2025-06-05 21:49 | Emergency (ER) | payer BC, MEDICAID, SELFPAY ==
[2025-06-05 21:50] VITALS: BP 134/77; PULSE 78; RESP 18; TEMP 36.8; O2SAT 99; BMI 23.4
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
--- OUTSIDE RECORDS SUMMARY | 2025-06-05 21:53 | XMS_ITS | Encounter Summary ---
Author Organization [facility] Address [address] [place] [address] Care Team Providers Care Pie Dough Roller Name Role Phone Unavailable Primary Care Provider Unavailabl e Encounter Details Date Type Department Care Team (Late st Contact Info) Description 05/29/2025 Telephone [facility] - Behavioral Health [address] [place] [address] [address] [facility] [place] [address] Yary Kunz LPN Social History Tobacco Use Types Packs/Day Years Used Date Smoking Tobacco: Never Smokeless Tobacco: Never [facility] Utilities Answer Date Recorded In the past 12 months has th e electric, gas, oil, or water company threatened to shut off services in your home? No 05/14/2025 PHQ-2 Answer Date Recorded PHQ-2 Score 2 05/14/2025 Hunger Vital Sign Answer Date Recorded Within the past 12 months, y ou worried that your food would run out before you got the money to buy more. Never true 05/14/20 25 Within the past 12 months, t he food you bought just didn't last and you didn't have money to get more. Never true 05/14/2025 PRAPARE - Transportation Answer Date Re corded In the past 12 months, has l ack of transportation kept you from medical appointments or from getting medications? No 04/27 In the past 12 months, has l ack of transportation kept you from meetings, work, or from getting things needed for daily living? No 05/14/2025 Housing Stability Vital Sign Answer Chris e Recorded In the last 12 months, was t here a time when you were not able to pay the mortgage or rent on time? No 05/14/2025 In the past 12 months, how m any times have you moved where you were living? 0 05/14/2025 At any time in the past 12 m [facility], were you homeless or living in a snf (including now)? No 05/14/2025 Sex and Gender Information Value Date Recorded Sex Assigned at Not on file Legal Sex Male 9:45 AM CDT Gender Identity Not on file Sexual Orientation Not on file documented as of this encounter Plan of Treatment Upcoming Encounters Date Type Department Care Team (Late st Contact Info) Description 06/13/2025 10:15 AM CDT [facility] [address] [facility] [address] Mario Hays [place], PMHNP [address] [place] [address] documented as of this encounter Visit Diagnoses Not on filedocumented in this encounter Additional Health Concerns Assessment Noted Time PHQ-9 Depression Total Score: 2 05/14/20 25 3:00 PM CDT A fall risk assessment has been complete d for the patient 05/14/2025 3:46 PM CDT documented as of this encounter
--- OUTSIDE RECORDS SUMMARY | 2025-06-05 21:53 | XMS_ITS | Clinical Summary ---
Author Organization [facility] Address [address] [place] [address] Phone Care Team Providers Care Truck Headlight Assembler Name Role Phone Unavailable Primary Care Provider Unavailabl e Allergies No known active allergies Medications No known medications Immunizations Immunization Administration Dates Next Due (ADACEL/BOOSTRIX)(10 YR UP) TDAP VACCINE, 0.5ML, IM 11/29/2014 Social History Tobacco Use Types Packs/Day Years Used Date Smoking Tobacco: Every Day Cigarettes 0 Smokeless Tobacco: Never Alcohol Use Standard Drinks/Week Comments Yes 4 (1 standard drink = 0.6 oz pur e alcohol) Sex and Gender Information Value Date Recorded Sex Assigned at Not on file Legal Sex Male 10:33 PM RN TRIAGE Gender Identity Not on file Sexual Orientation Not on file Last Filed Vital Signs Vital Sign Reading Time Taken Comments Blood Pressure 108/68 03/23/2020 12:57 AM CDT Pulse - - Temperature 37.2 C (99 F) 03/23/2020 12:57 AM CDT Respiratory Rate 16 03/23/2020 12:57 AM CDT Oxygen Saturation 97% 03/23/2020 12:57 AM CDT Inhaled Oxygen Concentration - - Weight 67.1 kg (148 lb) 03/23/2020 12:57 AM CDT Height 170.2 cm (5' 7 ) 03/23/2020 12:57 AM CDT Body Mass Index 23.18 03/23/2020 12:57 AM CDT Plan of Treatment Health Maintenance Due Date Last Done Comments HPV VACCINES (1 - Male 3-dose series) 2015 HEPATITIS B VACCINES (1 of 3 - 19+ 3-dose series) 04/27 DTAP/TDAP/TD VACCINES (2 - Td or Tdap) 11/29/2024 INFLUENZA VACCINE (#1) 2025 Insurance [place]
--- OUTSIDE RECORDS SUMMARY | 2025-06-05 21:53 | XMS_ITS | Clinical Summary ---
Author Organization [facility] Address [address] [address] Care Team Providers Care Software Implementation Project Manager Name Role Phone Unavailable Primary Care Provider Unavailabl e Medications hydrOXYzine (ATARAX) 25 mg tabletIndication s:Generalized anxiety disorder Take 1/2 or 1 full tablet by mouth up to 3 times daily as needed. 60 tablet 1 5 Active ergocalciferol (ERGOCALCIFEROL) 1,250 mcg (50,000 unit) capsuleIndicatio ns:Vitamin D deficiency Take 1 capsule (50,000 Units total) by mouth once a week. 4 capsule 2 5 05/15/20 26 Active ARIPiprazole (ABILIFY) 10 mg tabletIndication s:Bipolar I disorder (HCC) Take 1 tablet (10 mg total) by mouth every morning. 30 tablet 5 Active FLUoxetine (PROzac) 40 mg capsuleIndicatio ns:Major depressive disorder, remission status unspecified, unspecified whether recurrent Take 1 capsule (40 mg total) by mouth every morning. 30 capsule 5 Active ARIPiprazole (ABILIFY) 10 mg tablet Take 10 mg by mouth every morning. 5 05/22/20 25 Discontinu ed(Reorder ) FLUoxetine (PROzac) 40 mg capsule Take 40 mg by mouth every morning. 5 05/22/20 25 Discontinu ed(Reorder ) Active Problems No known active problems Encounters Date Type Department Care Team Description 05/29/2025 Telephone [facility] [address] [place] [address] [address] [facility] [place] [address] Yary Kunz LPN 05/22/2025 Refill [facility] [address] [facility] [address] [facility] [place] [id number] Moira Peter, JAILER/TRAINING OFFICER Major depressive disorder, remission status unspecified, unspecified whether recurrent (Primary Dx); Bipolar I disorder (HCC) 05/14/2025 3:51 PM CDT - 05/14/2025 11:59 PM CDT Hospital Encounter [facility] [address] [facility] [address] [facility] [address] Encounter for long-term (current) use of medications Discharge Disposition: Home or Self Care 05/14/2025 3:00 PM CDT Office Visit [address] [facility] [place] [address] Mario Hays, PMHNP Generalized anxiety disorder (Primary Dx); Vitamin D deficiency 05/14/2025 Orders Only [address] [facility] [address] Sarah Sebastian, JAILER/TRAINING OFFICER Attention deficit hyperactivity disorder, combined type (Primary Dx); Bipolar I disorder (HCC); Bipolar II disorder (HCC); Generalized anxiety disorder; Major depressive disorder, remission status unspecified, unspecified whether recurrent; Panic disorder; Preoperative examination; PTSD (post-traumatic stress disorder); Somatic symptom disorder 05/14/2025 Orders Only [facility] [address] [facility] [address] [facility] [place] [place] [address] Yary Kunz, AZAR Encounter for long-term (current) use of medications (Primary Dx) 05/14/2025 Travel from Last 3 Months Immunizations Immunization Administration Dates Next Due DTaP (INFANRIX) 12/30/2005, 4,04/27/2001,2000,2000 Hep B, unspecified 02/14/2001,2000, 000 Hib (PRP-T) (ACTHIB, HIBERIX) 12/10/2003 ,04/27/2001,2000,2000 IPV (IPOL) 12/30/2005, 4,2000,2000 MMR (M-M-R II) 12/30/2005,05/18/2001 Tdap (BOOSTRIX, ADACEL) 11/29/2014 pneumococcal conjugate PCV 7 (PREVNAR 7) 10/27/2001 varicella (VARIVAX) 12/10/2003 Social History Tobacco Use Types Packs/Day Years Used Date Smoking Tobacco: Never Smokeless Tobacco: Never Tobacco Cessation:Counseling Given: Yes [facility] Utilities Answer Date Recorded In the past [...] any time in the past 12 m [facility], were you homeless or living in a fci (including now)? No 05/14/2025 Sex and Gender Information Value Date Recorded Sex Assigned at Not on file Legal Sex Male 9:45 AM CDT Gender Identity Not on file Sexual Orientation Not on file Last Filed Vital Signs Vital Sign Reading Time Taken Comments Blood Pressure 115/69 05/14/2025 2:39 PM CDT Pulse 68 05/14/2025 2:39 PM CDT Temperature - - Respiratory Rate - - Oxygen Saturation - - Inhaled Oxygen Concentration - - Weight 67.8 kg (149 lb 6.4 oz) 05/14/2025 2:39 P M CDT Height 175.3 cm (5' 9 ) 05/14/2025 2:39 PM CDT Body Mass Index 22.06 05/14/2025 2:39 PM CDT Plan of Treatment Upcoming Encounters Date Type Department Care Team (Late st Contact Info) Description 06/13/2025 10:15 AM CDT Office Visit [facility] [address] [facility] [address] [facility] [place] [phone] Mario Hays [place], PMHNP [address] [facility] [address] [place] [address] Health Maintenance Due Date Last Done Comments Annual Wellness 2000 Varicella Vaccines (2 of 2 - 2-dose childhood series) 01/27/2006 12/10/2003 HPV Vaccines (1 - Male 3-dose series) 2015 Td, Tdap Vaccines Adult 11/29/2024 11/29/2014 Influenza Vaccination (#1) 2025 Hepatitis B Vaccines Completed 02/14/2001, 2000, 2000 Pneumococcal Vaccine: Pediatrics (0 to 5 Years) and At-Risk Patients (6 to 49 Years) Aged Out 10/27/2001 No longer eligible based on patient's age to complete this topic HIB Vaccines Completed 12/10/2003, 09/2000, 2000, Additional history exists IPV Vaccines Completed 12/30/2005, 11/25, 2000, Additional history exists MMR Vaccines Completed 12/30/2005, 05/18/2001 Hepatitis A Vaccines Aged Out No long er eligible based on patient's age to complete this topic Meningococcal Vaccines Aged Out No lo nger eligible based on patient's age to complete this topic RSV Mab Nirsevimab (Beyfortus) <20 months Aged Out No longer eligibl e based on patient's age to complete this topic Rotavirus Vaccines Aged Out No longer eligible based on patient's age to complete this topic Procedures Procedure Name Priority Date/Time Associated Diagnosis Comments [employer] GENESIGHT PSYCHOTROPIC TEST Routine 05/15/2025 Attention deficit hyperactivity disorder, combined type Bipolar I disorder (HCC) Bipolar II disorder (HCC) Generalized anxiety disorder Major depressive disorder, remission status unspecified, unspecified whether recurrent Panic disorder Preoperative examination PTSD (post-traumatic stress disorder) Somatic symptom disorder GFR FOR ADULT Routine 05/14/2025 3:56 PM CDT BILL CBC AUTO DIFF Routine 05/14/2025 3: 56 PM CDT HEMOGLOBIN A1C Routine 05/14/2025 3:56 PM CDT Encounter for long-term (current) use of medications LIPID PANEL Routine 05/14/2025 3:56 PM CDT Encounter for long-term (current) use of medications 25-HYDROXYVITAMIN D Routine 05/14/2025 3 :56 PM CDT Encounter for long-term (current) use of medications VITAMIN B12 Routine 05/14/2025 3:56 PM CDT Encounter for long-term (current) use of medications COMPREHENSIVE METABOLIC PANEL Routine 05/14/2025 3:56 PM CDT Encounter for long-term (current) use of medications CBC WITH DIFFERENTIAL Routine 05/14/2025 3:56 PM CDT Encounter for long-term (current) use of medications TSH, 3RD GENERATION Routine 05/14/2025 3 :56 PM CDT Encounter for long-term (current) use of medications from Last 3 Months Results * [employer] Psychotropic Test ([id number]) (05/15/2025) [facility] Genesight Psychotropic Plus Mthfr See PDF 05/18/2025 9:44 AM CDT [employer] [facility] Comment: [employer] Psychotropic, GeneSight MTHFR See PDF for complete results. Interpretation of genetic results to guide clinical decision included in the resulting PDF. Saliva specimen (specimen) 05/15/2025 05/17/2025 3:36 PM CDT [facility] SPECIAL[facility] D IAGNOSTICS Final Result Performing Organization Address City/[facility]/ZIP Co de Phone Number [facility] [address] [place] [address] [facility] [address] [place] [address] * Bill CBC auto diff (05/14/2025 3:56 PM CDT) 05/14/2025 3:56 PM CDT 05/14/2025 3:56 PM CDT [facility] BLOOD ORDER KAYLYNN Final Result Performing Organization Address [facility] Co de Phone Number [facility] [address] [place] [address], [place] * GFR for Adult (05/14/2025 3:56 PM CDT) Pathologist [facility] GFR for adult >60 mL/min/1.7 3m2 05/14/2025 4:16 PM CDT [facility] Comment: This estimated glomerular filtration rate (eGFR) was calculated using the CKD-EPI Creatinine Equation 2020, which does not use a race coefficient. eGFR is not reliable for patients with rapidly changing creatinine levels, extremes in muscle mass and body size, or altered diet patterns. Values should be interpreted in the context of the patient's full clinical presentation. 05/14/2025 3:56 PM CDT 05/14/2025 3:56 PM CDT [facility]LOOD ORDER KAYLYNN Final Result Performing Organization Address City/[facility]/ZIP Co de Phone Number [facility] [address] [facility], [address] [place] [address], [place] [phone] * Vitamin B12 Once (05/14/2025 3:56 PM CDT) Vitamin B12 474 200 - 978 pg/mL 05/14/2025 4:55 PM CDT [facility] Blood Venous blood / Unknown 05/14/2025 3:56 PM CDT 05/14/2025 3:56 PM CDT [facility] LAB BLOOD ORDER KAYLYNN Final Result [facility] Physicians [address], [address] [place] [address], [place] [phone] * (ABNORMAL) 25-Hydroxyvitamin D Once (05/14/2025 3:56 PM CDT) Pathologist [facility] Vitamin D 24.8(L) 30.0 - 60.0 ng/mL 05/14/2025 4:59 PM CDT [facility] Blood Venous blood / Unknown 05/14/2025 3:56 PM CDT 05/14/2025 3:56 PM CDT [facility] [place] [facility] BLOOD ORDER KAYLYNN Final Result [facility] [address] [facility], [address] [place] [address], [place] [phone] * (ABNORMAL) CBC with Differential Once (05/14/2025 3:56 PM CDT) WBC 8.34 4.23 - 9.07 10*3/uL 05/14/2025 3:59 PM CDT [facility] RBC 5.03 4.63 - 6.08 10*6/uL 05/14/2025 3:59 PM CDT [facility] Hemoglobin 15.1 13.7 - 17.5 g/dL 05/14/2025 3:59 PM CDT [facility] Hematocrit 45.1 40.1 - 51.0 % 05/14/2025 3:59 PM CDT [facility] MCV 89.7 79.0 - 92.2 fL 05/14/2025 3:59 PM CDT [facility] MCH 30.0 25.7 - 32.2 pg 05/14/2025 3:59 PM CDT [facility] MCHC 33.5 32.3 - 36.5 g/dL 05/14/2025 3:59 PM CDT [facility] Platelet Count 264 163 - 337 10*3 05/14/2025 3:59 PM CDT [facility] RDW CV 12.6 11.6 - 14.4 % 05/14/2025 3:59 PM CDT [facility] MPV 11.3 6.7 - 12.0 fL 05/14/2025 3:59 PM CDT [facility] Neutrophils 68.10(H) 34.00 - 67.90 % 05/14/2025 3:59 PM CDT [facility] Lymphocytes 22.90 21.80 - 53.10 % 05/14/2025 3:59 PM CDT [facility] Monocytes 5.50 5.30 - 12.20 % 05/14/2025 3:59 PM CDT [facility] Eosinophils 2.90 0.80 - 7.00 % 05/14/2025 3:59 PM CDT [facility] Basophils 0.50 0.20 - 1.20 % 05/14/2025 3:59 PM CDT [facility] Absolute Neutrophils 5.68 1.43 - 6.16 10*3/uL 05/14/2025 3:59 PM CDT [facility] Absolute Lymphocytes 1.91 0.92 - 4.82 10*3/uL 05/14/2025 3:59 PM CDT [facility] Absolute Monocytes 0.46 0.22 - 1.11 10*3/uL 05/14/2025 3:59 PM CDT [facility] Absolute Eosinophils 0.24 0.03 - 0.63 10*3/uL 05/14/2025 3:59 PM CDT [facility] Absolute Basophils 0.04 0.01 - 0.11 10*3/uL 05/14/2025 3:59 PM CDT [facility] Immature Granulocytes 0.10 0.00 - 3.00 % 05/14/2025 3:59 PM CDT [facility] Blood Venous blood / Unknown 05/14/2025 3:56 PM CDT 05/14/2025 3:56 PM CDT Mario Hays [facility] LAB BLOOD ORDER KAYLYNN Final Result Performing Organization Address [facility]/ZIP Co de Phone Number [facility] Physicians [address], [address] [place] [address], [place] [phone] * TSH, 3rd generation Once (05/14/2025 3:56 PM CDT) TSH, 3rd Gen 1.020 0.270 - 4.670 u[IU]/mL 05/14/2025 4:59 PM CDT [facility] Blood Venous blood / Unknown 05/14/2025 3:56 PM CDT 05/14/2025 3:56 PM CDT Javidleonarda Hays [facility] LAB BLOOD ORDER KAYLYNN Final Result Performing Organization Address [facility] Co de Phone Number [address], [address] [place] [address], [place] [phone] * Hemoglobin A1c Once (05/14/2025 3:56 PM CDT) Hemoglobin A1C 5.0 3.4 - 6.1 % 05/14/2025 4:16 PM CDT [facility] Hemoglobin glucose 97 mg/dL 05/14/2025 4:16 PM CDT [facility] Comment: Glucose Calc - Reflects an approximate mean plasma glucose during the preceding 2 to 3 months. Blood Venous blood / Unknown 05/14/2025 3:56 PM CDT 05/14/2025 3:56 PM CDT [facility] LAB BLOOD ORDER KAYLYNN Final Result [facility] [address], [address] [place] [address], [place] [phone] * Lipid panel Once (05/14/2025 3:56 PM CDT) Cholesterol 168 0 - 200 mg/dL 05/14/2025 4:16 PM CDT [facility] Triglycerides 117 0 - 150 mg/dL 05/14/2025 4:16 PM CDT [facility] HDL Cholesterol 55 35 - 55 mg/dL 05/14/2025 4:16 PM CDT [facility] VLDL Chol Calc 23 mg/dL 05/14/2025 4:16 PM CDT [facility] LDL Chol Calc 90 mg/dL 05/14/2025 4:16 PM CDT [facility] Non-HDL Cholesterol 113 0 - 130 mg/dL 05/14/2025 4:16 PM CDT [facility] Chol/HDL Calc 3.05 mg/dL 05/14/2025 4:16 PM CDT [facility] Comment: Based on the results of the total cholesterol and HDL cholesterol ratio, this patient was determined to have a less than average risk for developing coronary heart disease based on the Gr[place] Heart Disease Epidemiology Study. The National Cholesterol Education Program (NCEP) has set the following guidelines for total cholesterol: Desirable: <200 mg/dl Borderline High: 200-239 mg/dl High: > or = 240 mg/dl The National Cholesterol Education Program (NCEP) has set the following guidelines for triglycerides: Normal: <150 mg/dl Borderline high: 150-199 mg/dl High: 200-499 mg/dl Very High: > or = 500 mg/dl The National Cholesterol Education Program (NCEP) has set the following guidelines for HDL Cholesterol: Low HDL: <40 mg/dl Normal: 40 - 60 mg/dl Desirable: >60 mg/dl Blood Venous blood / Unknown 05/14/2025 3:56 PM CDT 05/14/2025 3:56 PM CDT Mario Hays HNP LAB BLOOD ORDER KAYLYNN Final Result [facility] [address] [facility], [address] [place] [address], [place] [phone] * Comprehensive metabolic panel Once (05/14/2025 3:56 PM CDT) Sodium 134 131 - 145 meq/L 05/14/2025 4:16 PM CDT [facility] Potassium 4.6 3.3 - 5.0 meq/L 05/14/2025 4:16 PM CDT [facility] Chloride 99 96 - 111 meq/L 05/14/2025 4:16 PM CDT [facility] CO2 26 20 - 31 meq/L 05/14/2025 4:16 PM CDT [facility] BUN 15 5 - 23 mg/dL 05/14/2025 4:16 PM CDT [facility] Creatinine 1.00 0.60 - 1.70 mg/dL 05/14/2025 4:16 PM CDT [facility] Glucose 87 72 - 113 mg/dL 05/14/2025 4:16 PM CDT [facility] Calcium 9.5 8.2 - 10.2 mg/dL 05/14/2025 4:16 PM CDT [facility] Bilirubin Total 0.2 0.1 - 0.9 mg/dL 05/14/2025 4:16 PM CDT [facility] Alkaline Phosphatase 97 38 - 137 U/L 05/14/2025 4:16 PM CDT [facility] ALT (SGPT) 18 0 - 40 U/L 05/14/2025 4:16 PM CDT [facility] AST (SGOT) 20 8 - 35 U/L 05/14/2025 4:16 PM CDT [facility] Total Protein 7.0 6.1 - 8.2 g/dL 05/14/2025 4:16 PM CDT [facility] Albumin 4.3 3.7 - 5.1 g/dL 05/14/2025 4:16 PM CDT [facility] Anion Gap 9 8 - 16 NA 05/14/2025 4:16 PM CDT [facility] Alb/Glob Ratio Calc 1.6 1.1 - 2.2 g/dL 05/14/2025 4:16 PM CDT [facility] BUN/Creatinine Ratio 15 mg/dL 05/14/2025 4:16 PM CDT [facility] Blood Venous blood / Unknown 05/14/2025 3:56 PM CDT 05/14/2025 3:56 PM CDT [facility] [place] Hays [facility] B[facility]OD ORDER KAYLYNN Final Result [facility] [address] [facility], [address] [place] [address], from Last 3 Months Insurance [facility]
--- NOTE | 2025-06-05 22:03 | ED.C_ITS ---
HPI - Psych General: Chief Complaint: Psychiatric Symptoms Stated Complaint: SI Time Seen by Provider: 06/05/25 21:50 Source: patient and police Limitations: no limitations History of Present Illness: 25[facility]year-[facility] he states he been having some suicidal thoughts he states they are passive in nature denies any specific plans. Denies any worse improving factors. Associated symptoms: Reports depression and suicidal ideation Related Data Home Medications ?Medication ?Instructions ?Recorded ?Confirmed albuterol sulfate 90 mcg/actuation 1 - 2 puff inhalati on Q6H PRN 12/06/24 12/06/24 aerosol inhaler (Ventolin HFA) Shortness Of Breath Previous Rx's ?Medication ?Instructions ?Recorded budesonide-formoterol HFA 80 1 inh inhalation BID #10. 2 grams 11/03/23 mcg-4.5 mcg/actuation aerosol inhaler (Symbicort) aripiprazole 10 mg tablet 10 mg PO .morning 30 days #3 0 tabs 02/01/25 fluoxetine 40 mg capsule (Prozac) 40 mg PO .morning #3 0 caps 02/01/25 Allergies Allergy/AdvReac Type Severity Reaction Status Date / Time No Known Allergies Allergy Verified 11/03/24 13:34 Review of Systems Const: Denies: fever(s), chills, body aches or change in appetite ENMT: Denies: throat pain or dental pain Card: Denies: chest pain Resp: Denies: dyspnea GI: Denies: abdominal pain, nausea, vomiting or diarrhea Musc: Denies: neck pain or back pain Skin/Breast: Denies: rash Neuro: Denies: headache(s) Psych: Reports: depression and suicidal ideation [facility] ED PFSH: Medical History Methamphetamine dependence, episodic Nicotine dependence, cigarettes, uncomplicated Marijuana dependence Major depressive disorder, recurrent episode, moderate with anxious distress Psychiatric care Cough Asthma Otitis media of both ears Right bundle branch block Social History Smoking and tobacco/nicotine status: heavy tobacco/nicotine user Quit status (tobacco/nicotine): not considering quitting Second hand smoke exposure: Yes Alcohol intake: never Substance/Drug Use: current Adopted: No Caregiver/support person: Yes Lives independently: Yes Physical Exam Const: COMMON NORMALS: no acute distress, patient oriented x3 and healthy appearing HENMT: COMMON NORMALS: normocephalic and atraumatic HEAD & SCALP: normocephalic and atraumatic Eye: COMMON NORMALS: Equal, round and reactive pupils present and EOMs intact bilaterally PUPIL: Yes Equal, round and reactive pupils present Neck/C-Spine: COMMON NORMALS: full ROM and supple Chest: COMMONS NORMALS: normal inspection of the chest Resp: COMMON NORMALS: normal respiratory effort Cardio: COMMON NORMALS: regular rate RATE: regular rate Extremity: COMMON NORMALS: normal to inspection and full ROM Neuro: COMMON NORMALS: patient oriented x3, moves all extremities and no focal motor deficits Psych: COMMON NORMALS: mental status grossly normal, Normal thought process present and cooperative THOUGHT PROCESS: Normal thought process present THOUGHT CONTENT: Yes Suicidality present Skin: COMMON NORMALS: no rashes or lesions noted and no wounds GENERAL SKIN EXAM: no rashes or lesions noted Course Vital Signs: Vital signs: Vital Signs Temperature 98.3 F 06/05/25 21:50 Pulse Rate 78 06/05/25 21:50 Respiratory Rate 18 06/05/25 21:50 Blood Pressure 134/77 06/05/25 21:50 Pulse Oximetry 99 06/05/25 21:50 Oxygen Delivery Me thod Room Air 06/05/25 21:50 MDM - Psych Medical Decision Making Patient presents here with suicidal ideation I did speak to Officer they are not going to release him they state they were concerned because they are having construction at the correction. While patient was here was able to find him transferred to [facility] where he is going to be discharged to and they are to do suicide watch on him there. Medical Records I reviewed the patient's medical records. No radiology studies performed this visit Discharge Plan Discharge Patient Disposition: Home Clinical Impression: Suicidal ideation Condition: Stable Prescriptions: No Action budesonide-formoterol [Symbicort] 80-4.5 mcg/actuation HFA aerosol inhaler 1 inh inhalation BID Qty: 10.2 2RF aripiprazole 10 mg tablet 10 mg PO .morning 30 Days Qty: 30 6RF Rx Instructions: Take one tablet every morning fluoxetine [Prozac] 40 mg capsule 40 mg PO .morning Qty: 30 6RF Rx Instructions: Take one capsule every morning albuterol sulfate [Ventolin HFA] 90 mcg/actuation HFA aerosol inhaler 1 - 2 puff INHALATION Q6H PRN (Reason: Shortness Of Breath) Discharge Orders: Discharge ED (Routine); Ordered 06/05/25 Ordered By: Miri Hung Referrals: Kelin Ortez FNP-C [Primary Care Provider, Family Practice] Discharge Diet: Advance as tolerated Discharge Activity: Resume usual activity Patient Instructions: Suicidal Ideation Print Language: Peruvian Coding Level of Care Code ED Deposition Operator for Jamari Lemon
== END 2025-06-05 22:08 | disposition home or self-care (01) ==
PROVIDERS: Emergency Provider Emergency Medicine; PCP Nurse Practitioner Family
DX: R45.851 Suicidal ideations (principal); Z72.0 Tobacco use
CPT/HCPCS: 99283